=== PATIENT | female | born 1945 | race Caucasian/White ===

== ENCOUNTER → 2016-10-26 | Outpatient (CLI) | payer MEDICARE, OTHER ==
--- NOTE | 2016-11-01 20:02 | WOMENS IMAGING REPORT ---
EXAM DESCRIPTION: 3D SCREENING MAMMO BILAT COMPLETED DATE/TIME: 10/26/2016 9:36 am REASON FOR STUDY: ROUTINE SCREENING; Z12.31 Z12.31 ENCNTR SCREEN MAMMOGRAM FOR MALIGNANT NEOPLASM O F MAYURI COMPARISON: 2015 TECHNIQUE: Standard craniocaudal and mediolateral oblique views of each breast recorded using digita l acquisition and breast tomosynthesis. LIMITATIONS: None. FINDINGS: No masses, calcifications or architectural distortion. No areas of suspicion. Read with the assistance of CAD. .[facility] - R2 Cenova Version 1.3 .[facility] Imaging - R2 Cenova Version 1.3 .[facility] - R2 Cenova Version 2.4 .[facility] - R2 Cenova Version 2.4 .[facility], [facility]1983 - R2 Design/Animation Instructor Version 9.2 IMPRESSION: NORMAL MAMMOGRAM. BIRADS 1. BREAST DENSITY: b. There are scattered areas of fibroglandular density. BIRAD: 1 NEGATIVE RECOMMENDATION: ROUTINE SCREENING Please continue yearly bilateral screening tomosynthesis in October 2017 COMMENT: The patient has been notified of the results by letter per SA requirements. Additional no tification policies are in place for contacting patient with suspicious or incomplete findings. Quality ID #[id number]: The [employer] recommends an annual screening mammogram for women aged 40 years or over. This facility utilizes a reminder system to ensure that all patients receive reminder letters, and/or direct phone calls for appointments. This includes reminders for routine scr eening mammograms, diagnostic mammograms, or other Breast Imaging Interventions when appropriate. Th is patient will be placed in the appropriate reminder system. The [place] [employer] (ACR) has developed recommendations for screening MRI of the breast s in certain patient populations, to be used in conjunction with mammography. Breast MRI surveillanc e may be appropriate for women with more than 20% lifetime risk of developing breast cancer as deter mined by genetic testing, significant family history of the disease, or history of mantle radiation f or Hodgkins Disease. ACR Practice Guidelines 2008. DBT Technology DBT is a type of tomographic mammography. With conventional mammography, overlapping breast tissue ma y make lesions difficult to detect, even with good compression. DBT uses an x-ray tube that rotates a round the breast, taking images at different angles. These images are then combined to create thin sl ices of the breast that the radiologist can view as a 3D reconstruction. The [employer] unit can perform full-field digital mammograms (2D imaging); or DBT (3D imaging); or both, in a combination mode that quickly performs both the mammogram and the tomosynthesis scan while the breast is still compressed. PQRS 6045F: Fluoroscopic imaging is not utilized for breast tomosynthesis. TECHNICAL DOCUMENTATION: FINDING NUMBER: (1) ASSESSMENT: (1) JOB ID: [id number] [employer]- All Rights Reserved
== END ==
LOC: WI 10:08
PROVIDERS: ATTEND Nurse Practitioner Family
DX: Z12.31 Encounter for screening mammogram for malignant neoplasm of breast (principal)
CPT/HCPCS: 77063; G0202; 77067

== ENCOUNTER → 2016-11-27 | Outpatient (CLI) | payer MEDICARE, OTHER ==
[2016-11-27 15:21] LABS: ANION GAP 12 (5-19); BLOOD UREA NITROGEN 23 mg/dL (7-20); CALCIUM 9.5 mg/dL (8.4-10.2); CARBON DIOXIDE 26 mmol/L (22-30); CHLORIDE 95 mmol/L (98-107); CREATININE RESULT 1.49 mg/dL (0.52-1.25); GLUCOSE 98 mg/dL (75-110); POTASSIUM 4.2 mmol/L (3.6-5.0); SODIUM 133.3 mmol/L (137-145)
== END ==
LOC: OD 14:20
PROVIDERS: ATTEND Internal Medicine Nephrology
DX: I10 Essential (primary) hypertension (principal)
CPT/HCPCS: 36415; 80048

== ENCOUNTER → 2016-12-14 | Day surgery (SDC) | payer MEDICARE, OTHER ==
[~2016-12-14] MED LIST: BUPIVACAINE HCL 0.5 % INJ/PF 30 ML SDV ONE; NALOXONE HCL INJ/PF 0.4 MG/1 ML SDV ONE
--- NOTE | 2016-12-14 08:09 | Operative Report ---
KNEE RADIOFREQUENCY LEFT KNEE UNDER ULTRASOUND GUIDANCE PROCEDURE: 1. Superolateral genicular branch from the vastus lateralis 2. Superomedial genicular branch from the vastus medialis 3. Inferomedial genicular branch from the saphenous nerve 4. Medial retinacular branch from the vastus intermedius DATE OF PROCEDURE: December 14, 2016 ANESTHESIA: Local COMPLICATIONS: None PROCEDURE IN DETAIL: Hx/PE/meds/allergies/applicable labs reviewed. No changes and no contraindications were found. Full description of the procedure was provided including benefits as well as possible complications including transient increased pain, stomach irritation, mood alteration, transient weakness or parasthesias as well as more serious nerve injury, bleeding, infection or allergic reaction. Informed consent was obtained and documented. The patient was brought to the procedure room and placed on the exam table in a comfortable supine position. The place for needle placement was obtained by manual palpation with ultrasound confirmation. The sterile field was prepared by chloroprep and sterile drapes. Local anesthesia superficial and deep was provided by local infiltration of 1% lidocaine 2 cc. A 17g 75/100/150mm radiofrequency introducer needle with a 4 mm active tip was placed overlying the left knee joint and using ultrasound guidance the needle was advanced to a bony endpoint on the superiolateral portion of the femoral condyle of the left knee. A second needle was advanced to a bony endpoint on the superiomedial portion of the femoral condyle. A third needle was then placed over the inferiomedial portion of the tibial condyle until a bony endpoint was met and a fourth needle placed midline of the femur approximately 2cm superior to the upper border of the patella. Attempted aspiration yielded no blood. Lateral ultrasound views showed all the needles at 50% depth of the femur and tibia. Motor stimulation was tested at 2.0 volts with no leg movement. Images were saved in AP and lateral. A mixture consisting of 1% Marcaine was slowly injected. Then a radiofrequency ablation of each of the geniculate nerves were done at 80 degrees Celsius for 2 minutes and 30 seconds each. The needles were withdrawn. The patient tolerated the procedure well. After observation the patient was discharged with instructions and follow up. They were also provided contact information to call regarding any concerning symptoms or questions. IMPRESSION: 1. Successful geniculate knee radiofrequency ablation was performed. 2. The patient was given prescription of continue home prescriptions. 3. RTC in 1 week(s).
== END ==
LOC: RAD 07:29
PROVIDERS: ATTEND Family Medicine
DX: M17.11 Unilateral primary osteoarthritis, right knee (principal); M17.12 Unilateral primary osteoarthritis, left knee
CPT/HCPCS: 64640; J2310

== ENCOUNTER → 2017-01-18 | Outpatient (CLI) | payer MEDICARE, OTHER ==
[2017-01-18 15:37] LABS: ABSOLUTE LYMPHOCYTES (AUTO) 1.8 10^3/uL (0.5-4.7); ABSOLUTE MONOCYTES (AUTO) 0.9 10^3/uL (0.1-1.4); ABSOLUTE NEUT (AUTO) 8.1 10^3/uL (1.7-8.2); BASOPHILS % (AUTO) 0.3 % (0-2); HEMATOCRIT 35.5 % (36.0-47.0); HEMOGLOBIN 12.1 g/dL (12.0-15.5); HGB HCT DIFFERENCE 0.8; LYMPHOCYTES % (AUTO) 16.3 % (13-45); MEAN CORPUSCULAR HEMOGLOBIN 31.6 pg (27.0-33.4); MEAN CORPUSCULAR HGB CONC 34.1 g/dL (32.0-36.0); MEAN CORPUSCULAR VOLUME 93 fl (80-97); MONOCYTES % (AUTO) 8.7 % (3-13); RED BLOOD COUNT 3.83 10^6/uL (3.72-5.28); RED CELL DISTRIBUTION WIDTH 14.6 % (11.5-14.0); SEGMENTED NEUTROPHILS % (AUTO) 74.7 % (42-78); WHITE BLOOD COUNT 10.9 10^3/uL (4.0-10.5)
[2017-01-18 16:00] LABS: BLOOD UREA NITROGEN 19 mg/dL (7-20); CALCIUM 9.8 mg/dL (8.4-10.2); CREATININE RESULT 2.01 mg/dL (0.52-1.25); GLUCOSE 85 mg/dL (75-110)
[2017-01-18 16:11] LABS: CARBON DIOXIDE 20 mmol/L (22-30); CHLORIDE 99 mmol/L (98-107); POTASSIUM 4.2 mmol/L (3.6-5.0); SODIUM 141.9 mmol/L (137-145)
[2017-01-18 16:17] LABS: ANION GAP 23 (5-19)
--- NOTE | 2017-01-18 16:45 | RADIOLOGY REPORT (SQ) ---
EXAM DESCRIPTION: CHEST PA/LATERAL COMPLETED DATE/TIME: 01/18/2017 3:31 pm REASON FOR STUDY: PRE OP COMPARISON: 12/31/2015 NUMBER OF VIEWS: Two view. TECHNIQUE: Frontal and lateral radiographic views of the chest acquired. LIMITATIONS: None. FINDINGS: LUNGS AND PLEURA: No opacities, masses or pneumothorax. Minimal obscuring the right cost ophrenic angle on the lateral projection that could represent a small effusion. Stable bleb or new m atter serial right base. MEDIASTINUM AND HILAR STRUCTURES: No masses or contour abnormalities. HEART AND VASCULATURE: Heart normal size. No evidence for failure. BONY STRUCTURES: No acute findings. HARDWARE: None. OTHER: No other significant finding. IMPRESSION: Possible very small right pleural effusion. TECHNICAL DOCUMENTATION: JOB ID: [id number] [employer]- All Rights Reserved
== END ==
LOC: OD 14:50
PROVIDERS: ATTEND Orthopaedic Surgery
DX: Z01.810 Encounter for preprocedural cardiovascular examination (principal); Z01.812 Encounter for preprocedural laboratory examination; Z01.818 Encounter for other preprocedural examination; E11.9 Type 2 diabetes mellitus without complications
CPT/HCPCS: 36415; 71020; 80048; 83036; 85025

== ENCOUNTER → 2017-01-22 | Outpatient (CLI) | payer MEDICARE, OTHER ==
[2017-01-22 15:19] LABS: APPEARANCE,URINE CLEAR; BILIRUBIN,URINE NEGATIVE (NEGATIVE); GLUCOSE, URINE NEGATIVE (NEGATIVE); KETONES,URINE NEGATIVE (NEGATIVE); LEUKOCYTE ESTERASE,URINE SMALL (NEGATIVE); NITRITE,URINE NEGATIVE (NEGATIVE); PROTEIN,URINE NEGATIVE (NEGATIVE); UROBILINOGEN,URINE NEGATIVE mg/dL (<2.0)
--- NOTE | 2017-01-23 09:45 | EKG REPORT ---
SEVERITY:- ABNORMAL ECG - PROBABLE SINUS RHYTHM, REC EKG SECONDARY TO BASELINE ARTIFACTS LEFT BUNDLE BRANCH BLOCK : Confirmed by: Marylu Herron 23-Jan-2017 09:45:24
== END ==
LOC: OD 13:46
PROVIDERS: ATTEND Orthopaedic Surgery
DX: Z01.818 Encounter for other preprocedural examination (principal); S62.300A Unspecified fracture of second metacarpal bone, right hand, initial encounter for closed fracture; S60.221A Contusion of right hand, initial encounter; X58.XXXA Exposure to other specified factors, initial encounter
CPT/HCPCS: 81001; 93005; 93010

== ENCOUNTER 2017-01-29 09:21 | Emergency (ER) | payer MEDICARE, OTHER ==
--- NOTE | 2017-01-29 10:07 | ER Document Report ---
ED Medical Screen (RME) - General Chief Complaint: Breathing Difficulty Stated Complaint: BLOOD PRESSURE CONCERN Time Seen by Provider: 01/29/17 09:56 Notes: Sent from pain management with low blood pressure. Patient's blood pressure in triage here was normal. Patient complains of feeling short of breath. Patient has no previous history of DVT or PE. Patient states she is having a hard time getting comfortable because of left knee pain that is chronic. TRAVEL OUTSIDE OF THE [place] IN LAST 30 DAYS: No - Related Data Allergies/Adverse Reactions: No Known Allergies Allergy (Verified 01/29/17 09:27) Home Medications: Current Home Medications Clonidine HCl 1 tab PO DAILY 01/29/17 [History] Past Medical History - Social History Frequency of alcohol use: None Drug Abuse: None - Past Medical History Cardiac Medical History: Reports: Hx Hypertension Denies: Hx Atrial Fibrillation, Hx Congestive Heart Failure, Hx Coronary Artery Disease, Hx Heart Attack, Hx Hypercholesterolemia, Hx Peripheral Vascular Disease, Hx Pulmonary Embolism, Hx Heart Murmur Pulmonary Medical History: Reports: Hx Asthma - SOB on exertion , Hx Bronchitis - 10 yrs ago , Hx Pneumonia - 10 yrs ago Denies: Hx COPD, Hx Respiratory Failure, Hx Sleep Apnea, Hx Tuberculosis Neurological Medical History: Endocrine Medical History: Reports: Hx Diabetes Mellitus Type 2. Denies: Hx Graves' Disease, Hx Hyperthyroidism, Hx Hypothyroidism Renal/ Medical History: Reports: Hx Renal Insufficiency. Denies: Hx End Stage Renal Disease, Hx Kidney Stones, Hx Peritoneal Dialysis Malignancy Medical History: Denies: Hx Lung Cancer GI Medical History: Reports: Hx Gastroesophageal Reflux Disease. Denies: Hx Crohn's Disease, Hx Hiatal Hernia, Hx Irritable Bowel, Hx Liver Failure, Hx Pancreatitis, Hx Ulcer Musculoskeltal Medical History: Reports Hx Arthritis, Reports Hx Fibromyalgia, Denies Hx Muscular Dystrophy Psychiatric Medical History: Reports: Hx Depression Denies: Hx Bipolar Disorder, Hx Post Traumatic Stress Disorder, Hx Schizophrenia Traumatic Medical History: Denies: Hx Fractures Past Surgical History: Reports: Hx Appendectomy, Hx Cholecystectomy, Hx Orthopedic Surgery. Denies: Hx Bowel Surgery, Hx Section, Hx Colostomy , Hx Coronary Artery Bypass Graft, Hx Gastric Bypass Surgery, Hx Herniorrhaphy, Hx Hysterectomy, Hx Mastectomy, Hx Pacemaker, Hx Tonsillectomy, Hx Tubal Ligation - Immunizations Hx Diphtheria, Pertussis, Tetanus Vaccination: Yes History of Influenza Vaccine for 12/2016 - 05/2017 Season: No Physical Exam - Vital signs Vitals: Temp Pulse Resp BP Pulse Ox 97.8 F 82 20 118/99 H 97 01/29/17 09:27 01/29/17 09:27 01/29/17 09:27 01/29/17 09:27 01/29/17 09:27 Course - Vital Signs Vital signs: Temp Pulse Resp BP Pulse Ox 97.8 F 82 20 118/99 H 97 01/29/17 09:27 01/29/17 09:27 01/29/17 09:27 01/29/17 09:27 01/29/17 09:27
--- NOTE | 2017-01-29 10:33 | ER Document Report ---
ED General - General Chief Complaint: Breathing Difficulty Stated Complaint: BLOOD PRESSURE CONCERN Time Seen by Provider: 01/29/17 09:56 Notes: The patient is a 72-year-old female, past medical history chronic pain, presents from her pain management office, Dr. Alexandra's office, for concerns about low blood pressure. Her BP in the office was 61/40. On arrival to the ER , her blood pressure is normal. Patient says she took her amlodipine, Coreg and clonidine just prior to her appointment. She took the Coreg last night about 10 hours prior to her next dose and is unsure if the meds were taken too close together. She is complaining of some shortness of breath and her chronic left knee pain. Patient says that due to her chronic knee pain, she sits in a chair for 24 hours a day. She is only having shortness of breath when she ambulates and is unsure if this is due to deconditioning. She had shingles on her right arm last month, but her rash is no longer painful. She denies chest pain, nausea, vomiting, fevers, back pain, urinary symptoms, headache, cough or back pain. TRAVEL OUTSIDE OF THE [place] IN LAST 30 DAYS: No - Related Data Allergies/Adverse Reactions: No Known Allergies Allergy (Verified 01/29/17 09:27) Home Medications: Current Home Medications Clonidine HCl 1 tab PO DAILY 01/29/17 [History] Past Medical History - General Information source: Patient - Social History Smoking Status: Former Smoker Frequency of alcohol use: None Drug Abuse: None Family History: CAD Patient has suicidal ideation: No Patient has homicidal ideation: No - Past Medical History Cardiac Medical History: Reports: Hx Hypertension Denies: Hx Atrial Fibrillation, Hx Congestive Heart Failure, Hx Coronary Artery Disease, Hx Heart Attack, Hx Hypercholesterolemia, Hx Peripheral Vascular Disease, Hx Pulmonary Embolism, Hx Heart Murmur Pulmonary Medical History: Reports: Hx Asthma - SOB on exertion , Hx Bronchitis - 10 yrs ago , Hx Pneumonia - 10 yrs ago Denies: Hx COPD, Hx Respiratory Failure, Hx Sleep Apnea, Hx Tuberculosis Neurological Medical History: Endocrine Medical History: Reports: Hx Diabetes Mellitus Type 2. Denies: Hx Graves' Disease, Hx Hyperthyroidism, Hx Hypothyroidism Renal/ Medical History: Reports: Hx Renal Insufficiency. Denies: Hx End Stage Renal Disease, Hx Kidney Stones, Hx Peritoneal Dialysis Malignancy Medical History: Denies: Hx Lung Cancer GI Medical History: Reports: Hx Gastroesophageal Reflux Disease. Denies: Hx Crohn's Disease, Hx Hiatal Hernia, Hx Irritable Bowel, Hx Liver Failure, Hx Pancreatitis, Hx Ulcer Musculoskeltal Medical History: Reports Hx Arthritis, Reports Hx Fibromyalgia, Denies Hx Muscular Dystrophy Psychiatric Medical History: Reports: Hx Depression Denies: Hx Bipolar Disorder, Hx Post Traumatic Stress Disorder, Hx Schizophrenia Traumatic Medical History: Denies: Hx Fractures Past Surgical History: Reports: Hx Appendectomy, Hx Cholecystectomy, Hx Orthopedic Surgery. Denies: Hx Bowel Surgery, Hx Section, Hx Colostomy , Hx Coronary Artery Bypass Graft, Hx Gastric Bypass Surgery, Hx Herniorrhaphy, Hx Hysterectomy, Hx Mastectomy, Hx Pacemaker, Hx Tonsillectomy, Hx Tubal Ligation - Immunizations Hx Diphtheria, Pertussis, Tetanus Vaccination: Yes Hx Pneumococcal Vaccination: 12/23/15 Review of Systems - Review of Systems Notes: REVIEW OF SYSTEMS: CONSTITUTIONAL: -fevers, -chills EENT: -eye pain, -difficulty swallowing, -nasal congestion CARDIOVASCULAR:-chest pain, -syncope. RESPIRATORY: -cough, +SOB GASTROINTESTINAL: -abdominal pain, -nausea, -vomiting, -diarrhea GENITOURINARY: -dysuria, -hematuria MUSCULOSKELETAL: +chronic left knee pain, -back pain, -neck pain SKIN: -rash or skin lesions. HEMATOLOGIC: -easy bruising or bleeding. LYMPHATIC: -swollen, enlarged glands. NEUROLOGICAL: -altered mental status or loss of consciousness, -headache, - neurologic symptoms PSYCHIATRIC: -anxiety, -depression. ALL OTHER SYSTEMS REVIEWED AND NEGATIVE. Physical Exam - Vital signs Vitals: Temp Pulse Resp BP Pulse Ox 97.8 F 82 20 118/99 H 97 01/29/17 09:27 01/29/17 09:27 01/29/17 09:27 01/29/17 09:27 01/29/17 09:27 - Notes Notes: PHYSICAL EXAMINATION: GENERAL: Well-appearing, well-nourished and in no acute distress. HEAD: Atraumatic, normocephalic. EYES: Pupils equal round and reactive to light, extraocular movements intact, sclera anicteric, conjunctiva are normal. ENT: nares patent, oropharynx clear without exudates. Moist mucous membranes. NECK: Normal range of motion, supple without lymphadenopathy LUNGS: Breath sounds clear to auscultation bilaterally and equal. No wheezes rales or rhonchi. HEART: Regular rate and rhythm without murmurs ABDOMEN: Soft, nontender, normoactive bowel sounds. No guarding, no rebound. No masses appreciated. EXTREMITIES: Normal range of motion, no pitting or edema. No cyanosis. NEUROLOGICAL: Cranial nerves grossly intact. Normal speech, normal gait. Normal sensory and motor exams. PSYCH: Normal mood, normal affect. SKIN: Warm, Dry, normal turgor, no rashes or lesions noted. Course - Re-evaluation Re-evalutation: Patient appears very well and is in no respiratory distress. D-dimer sent, which was elevated, but V/Q scan does not show any evidence of pulmonary embolism. Creatinine is slightly elevated, but she has had higher values in the past. Rest of labs are unremarkable and chest x-ray does not show any evidence of pneumonia. Her initial hypotension improved on arrival to the ER and instructed her to hold her blood pressure medications until her appointment next week with her primary care physician. Given strict return precautions and she understands. - Vital Signs Vital signs: Temp Pulse Resp BP Pulse Ox 97.8 F 82 15 106/62 98 01/29/17 09:27 01/29/17 09:27 01/29/17 14:11 01/29/17 14:11 01/29/17 14:11 - Laboratory Result Diagrams: 01/29/17 10:22 01/29/17 10:22 Laboratory results interpreted by me: 01/29/17 01/29/17 01/29/17 10:22 10:22 10:22 RBC 3.55 L Hgb 11.3 L Hct 33.3 L RDW 14.8 H D-Dimer 1.45 H Creatinine 2.22 H Est GFR ( Amer) 26 L Est GFR (Non-Af Amer) 22 L Glucose 132 H AST 13 L - Diagnostic Test Radiology reviewed: Image reviewed, Reports reviewed Radiology results interpreted by me: CXR: NAD V/Q Chest: No PE. - EKG Interpretation by Me EKG shows normal: Sinus rhythm, [place], Intervals, QRS Complexes, ST-T Waves Rate: Normal Discharge - Discharge Clinical Impression: Hypotension Qualifiers: Hypotension type: unspecified hypotension type Qualified Code(s): I95.9 - Hypotension, unspecified Dyspnea Qualifiers: Dyspnea type: unspecified Qualified Code(s): R06.00 - Dyspnea, unspecified Condition: Good Disposition: HOME, SELF-CARE Additional Instructions: Do not take your blood pressure medications as this may be causing your blood pressure to drop too low. Keep a log of your blood pressures and bring it to your primary care physician to see what medications need to be adjusted. SHORTNESS OF BREATH OR DYSPNEA: You were evaluated for shortness of breath, or dyspnea. Dyspnea has many causes, and some are more serious than others. Sometimes it's impossible to diagnose the cause of dyspnea with the tests that are available on an emergency basis. Based on our evaluation today, you do not need hospitalization now. We found no evidence of pneumonia, collapsed lung, blood clots in the lung, tumors , or heart failure. Causes of non-specific dyspnea can include asthma or bronchospasm, hyperventilation, emotional distress, heart disease, emphysema, fibrosis of the lung, and stiffness of the chest wall. In healthy individuals with a single episode, it's sometimes reasonable to do nothing but wait to see if the problem occurs again. Additional tests used to evaluate dyspnea can include cardiac stress testing, echocardiography, pulmonary function testing, CAT scan of the chest, bronchoscopy or pulmonary biopsy. Return if shortness of breath persists or worsens, or if you develop chest pain, fever, cough, confusion, or fainting. NORMAL EXAM AND WORKUP: At this time, your examination and workup show no significant abnormality. No significant abnormal physical findings were noted. All laboratory, EKG, and imaging (x-ray, CT scans, ultrasound) studies that were ordered show no significant abnormality. Although your examination and all studies that were ordered showed no significant abnormal finding, there are no examinations and no studies that are 100% accurate. There is always the possibility that some abnormality could exist and not be detected with physical examination or within the limits and capabilities of laboratory and other studies. You should return or follow up as you were instructed on your visit today for further evaluation if your symptoms do not resolve. FOLLOW-UP CARE: If you have been referred to a physician for follow-up care, call the physician s office for an appointment as you were instructed or within the next two days. If you experience worsening or a significant change in your symptoms, notify the physician immediately or return to the Emergency Department at any time for re-evaluation. Referrals: LINDA HOFF FNP-C [Primary Care Provider] - Follow up as needed
[2017-01-29 10:36] LABS: ABSOLUTE BASOPHILS # (AUTO) 0.1 10^3/uL (0.0-0.2); ABSOLUTE EOSINOPHILS # (AUTO) 0.3 10^3/uL (0.0-0.6); ABSOLUTE LYMPHOCYTES (AUTO) 1.9 10^3/uL (0.5-4.7); ABSOLUTE NEUT (AUTO) 6.9 10^3/uL (1.7-8.2); BASOPHILS % (AUTO) 1.4 % (0-2); HEMATOCRIT 33.3 % (36.0-47.0); HEMOGLOBIN 11.3 g/dL (12.0-15.5); HGB HCT DIFFERENCE 0.6; LYMPHOCYTES % (AUTO) 18.6 % (13-45); MEAN CORPUSCULAR HEMOGLOBIN 31.9 pg (27.0-33.4); MEAN CORPUSCULAR VOLUME 94 fl (80-97); MONOCYTES % (AUTO) 9.6 % (3-13); RED BLOOD COUNT 3.55 10^6/uL (3.72-5.28); RED CELL DISTRIBUTION WIDTH 14.8 % (11.5-14.0); SEGMENTED NEUTROPHILS % (AUTO) 67.4 % (42-78); WHITE BLOOD COUNT 10.3 10^3/uL (4.0-10.5)
--- NOTE | 2017-01-29 10:46 | RADIOLOGY REPORT (SQ) ---
EXAM DESCRIPTION: CHEST SINGLE VIEW COMPLETED DATE/TIME: 01/29/2017 10:38 am REASON FOR STUDY: pain/sob COMPARISON: 12/31/2015 EXAM PARAMETERS: NUMBER OF VIEWS: One view. TECHNIQUE: Single frontal radiographic view of the chest acquired. RADIATION DOSE: NA LIMITATIONS: None. FINDINGS: LUNGS AND PLEURA: There appears to be a pneumatocele in the right base. There is no infil trate or effusion. MEDIASTINUM AND HILAR STRUCTURES: No masses. Contour normal. HEART AND VASCULAR STRUCTURES: Heart normal in size. Normal vasculature. BONES: No acute findings. HARDWARE: None in the chest. OTHER: No other significant finding. IMPRESSION: No acute cardiopulmonary disease. TECHNICAL DOCUMENTATION: JOB ID: [id number] [employer]- All Rights Reserved
[2017-01-29] MEDS ORDERED: NORMAL SALINE 1000 ML 1,000 ML IV ONE (10:48)
[2017-01-29 11:05] LABS: ALANINE AMINOTRANSFERASE 26 U/L (9-52); ALBUMIN 3.6 g/dL (3.5-5.0); ALKALINE PHOSPHATASE 76 U/L (38-126); ANION GAP 17 (5-19); ASPARTATE AMINO TRANSFERASE 13 U/L (14-36); BILIRUBIN,DIRECT 0.4 mg/dL (0.0-0.4); BILIRUBIN,TOTAL 0.5 mg/dL (0.2-1.3); BLOOD UREA NITROGEN 18 mg/dL (7-20); CALCIUM 9.6 mg/dL (8.4-10.2); CARBON DIOXIDE 23 mmol/L (22-30); CHLORIDE 101 mmol/L (98-107); CREATININE RESULT 2.22 mg/dL (0.52-1.25); GLUCOSE 132 mg/dL (75-110); POTASSIUM 3.9 mmol/L (3.6-5.0); SODIUM 140.5 mmol/L (137-145); TOTAL PROTEIN 6.6 g/dL (6.3-8.2)
--- NOTE | 2017-01-29 14:03 | EKG REPORT ---
SEVERITY:- ABNORMAL ECG - INCOMPLETE ANALYSIS DUE TO MISSING DATA IN PRECORDIAL LEAD(S) PROBABLE SINUS RHYTHM cannot rule out ACCELERATED JUNCTIONAL RHYTHM BORDERLINE T ABNORMALITIES, ANT-LAT LEADS : Confirmed by: Marylu Herron 29-Jan-2017 14:02:28
[2017-01-29 14:13] VITALS: BP 106/62
--- NOTE | 2017-01-29 14:31 | RADIOLOGY REPORT (SQ) ---
EXAM DESCRIPTION: NM LUNG VENT/PERF SCAN COMPLETED DATE/TIME: 01/29/2017 2:12 pm REASON FOR STUDY: SOB, elevated d-dimer, elevated creatinine COMPARISON: None. RADIONUCLIDE AND DOSE: 5 millicuries TC-99m MAA Intravenous 30 millicuries TC-99m DTPA Inhaled aerosol TECHNIQUE: Eight views of the lungs acquired post ventilation of DTPA aerosol. Eight matching views of the lungs acquired following injection of MAA. LIMITATIONS: None. FINDINGS: VENTILATION: Symmetric and homogeneous distribution of DTPA aerosol during ventilatory pha se. No significant areas of photopenia. PERFUSION: Perfusion images with normal homogenous activity and no wedge-shaped or segmental defects. No ventilation-perfusion mismatches. OTHER: No other significant finding. IMPRESSION: NORMAL VENTILATION-PERFUSION LUNG SCAN. NEGATIVE FOR PULMONARY EMBOLI. TECHNICAL DOCUMENTATION: JOB ID: [id number] [employer]- All Rights Reserved
--- NOTE | 2017-01-30 10:44 | EKG REPORT ---
SEVERITY:- NORMAL ECG - SINUS RHYTHM : Confirmed on behalf of: Marylu Herron 30-Jan-2017 10:43:38
== END 2017-01-29 15:07 | disposition home or self-care (01) ==
LOC: ER 09:21
DX: I95.9 Hypotension, unspecified (principal); R06.00 Dyspnea, unspecified; I10 Essential (primary) hypertension; E11.9 Type 2 diabetes mellitus without complications; G89.29 Other chronic pain; M25.562 Pain in left knee; Z90.49 Acquired absence of other specified parts of digestive tract; Z87.891 Personal history of nicotine dependence
CPT/HCPCS: 93005 ×2; 99285; 96360; 36415; 85025; 80053; 85379; 71010; 78582; 93010 ×2; A9540; A9567; J7030; Q9969

== ENCOUNTER 2017-02-05 06:30 | Inpatient (IN) | payer MEDICARE, OTHER ==
[~2017-02-05 06:30] MED LIST changes: -BUPIVACAINE HCL 0.5 % INJ/PF 30 ML SDV ONE; +BUPIVACAINE INJ/PF LIPOSOME/PF 266 MG/20 ML SDV IJ PRN; +CEFAZOLIN INJ 1 GM VIAL IV PRN; +IBUPROFEN 800 MG/NS 250 ML IV PRN; +LACTATED RINGERS 1000 ML IV PRN; +LANSOPRAZOLE 15 MG TAB.RAP.DR PO PRN; +LIDOCAINE 0.5% INJ-PF (5 MG/ML) 50 ML SDV SUBCUT PRN; -NALOXONE HCL INJ/PF 0.4 MG/1 ML SDV ONE; +OXYCODONE HCL SR 10 MG TABLET PO PRN; +THROMBIN (BOVINE) 5000 UNIT EPITAXIS KIT ONE; +THROMBIN (BOVINE) TOPICAL 20000 UNIT VIAL ONE; +VANCOMYCIN HCL 1,000 MG in DEXTROSE 5%-WATER 250 ML IV PRN
[2017-02-05] MEDS ORDERED: FENTANYL CITRATE INJ/PF 100 MCG/2 ML AMPUL ONE (07:55)
[2017-02-05] MEDS ORDERED: MIDAZOLAM 2 MG/2 ML INJ ONE (07:55)
[2017-02-05] MEDS ORDERED: DEXAMETHASONE SOD PHOSPHATE INJ 4 MG/1 ML VIAL ONE (07:55)
[2017-02-05] MEDS ORDERED: TRANEXAMIC ACID INJ/PF 1,000 MG/10 ML SDV IV ONE ×2 (07:56→12:00)
[2017-02-05] MEDS ORDERED: ONDANSETRON HCL INJ/PF 4 MG/2 ML SDV ONE (07:56)
[2017-02-05] MEDS ORDERED: PROPOFOL INJ 200 MG/20 ML VIAL IV ONE (07:56)
[2017-02-05] MEDS ORDERED: MORPHINE SULFATE 10 MG/ML INJ ONE (07:56)
[2017-02-05] MEDS ORDERED: BUPIVACAINE INJ/PF LIPOSOME/PF 266 MG/20 ML SDV ONE (08:18)
[2017-02-05] MEDS ORDERED: FENTANYL CITRATE INJ/PF 100 MCG/2 ML AMPUL IV PRN ×3 (09:14)
[2017-02-05] MEDS ORDERED: PROMETHAZINE HCL INJ 25 MG/1 ML VIAL IV PRN ×2 (09:14)
[2017-02-05] MEDS ORDERED: MORPHINE SULFATE 10 MG/ML INJ IV PRN ×3 (09:14→09:48)
[2017-02-05] MEDS ORDERED: MEPERIDINE HCL/PF INJ 25 MG/1 ML DISP.SYRIN IV PRN (09:14)
[2017-02-05] MEDS ORDERED: DIPHENHYDRAMINE HCL 50 MG/ML VIAL IV PRN ×2 (09:14→09:48)
--- NOTE | 2017-02-05 09:35 | Operative Report ---
Operative Report DATE OF SURGERY: 02/05/17 PREOPERATIVE DIAGNOSIS: Left knee arthritis OPERATION: Left knee arthroplasty SURGEON: SALINA CARRILLO 1ST TIRE AND LUBE TECHNICIAN: HUY PATTON ANESTHESIA: Spinal TISSUE REMOVED OR ALTERED: Bone to pathology ESTIMATED BLOOD LOSS: 100 PROCEDURE: Implants used: Femur: Med triathlon #5 CR femur Tibia: 4 tibia Tibial liner: 9 mm CS insert Patella: 35 mm oval patella Procedure with the patient supine on the operating table the left the limb is prepped and draped in a sterile fashion. The limb was elevated for exsanguination and the tourniquet inflated to 280 torr. A standard midline median parapatellar approach the knee is taken. Access is gained to the femoral canal through the intercondylar notch. Intramedullary alignment instrumentation used to resect 10 mm of distal femur in 5 of valgus. Sizing guide indicated a size 5 femur. Appropriate cutting jig is then used to fashion anterior posterior and chamfer cuts. A trial reduction femurs performed and this is judged to be adequate. Attention was next turned to the tibia. Using an extra medullary alignment system 9 millimeters was resected off the lateral tibial plateau. This is sized to a size 4 tibia. A trial reduction was now performed with a 5 femur and a 4 tibia using a 9 millimeters spacer. It is full extension and central patellofemoral tracking. The articular surface the patella was next resected using an oscillating saw. All trial implants were removed. Polymethylmethacrylate is mixed and used to cement the above implants in place. On adequate curing the cement excess cement was removed the tourniquet was deflated hemostasis obtained the wound is then closed in layers using interrupted Vicryl followed by criss. A sterile compressive dressing was applied and the patient returned to recovery room in satisfactory condition.
[2017-02-05] MEDS ORDERED: MORPHINE SULFATE 10 MG/ML INJ IM PRN (09:48)
[2017-02-05] MEDS ORDERED: ZOLPIDEM TARTRATE 5 MG TABLET PO PRN (09:48)
[2017-02-05] MEDS ORDERED: ACETAMINOPHEN 325 MG TABLET PO PRN (09:48)
[2017-02-05] MEDS ORDERED: ONDANSETRON HCL INJ/PF 4 MG/2 ML SDV IV PRN (09:48)
[2017-02-05] MEDS ORDERED: ONDANSETRON 4 MG TAB.RAPDIS PO PRN (09:48)
[2017-02-05] MEDS ORDERED: MAG HYDROX/AL HYDROX/SIMETH SUSP 30 ML UDCUP PO PRN (09:48)
[2017-02-05] MEDS ORDERED: (PENDING PHARMACY ID) (Lisinopril/Hydrochlorothiazide [Lisinopril-Hctz 20-25 Mg Tab] 1 TAB PO SCH (10:00)
--- NOTE | 2017-02-05 10:57 | RADIOLOGY REPORT (SQ) ---
EXAM DESCRIPTION: KNEE LEFT 2 VIEWS COMPLETED DATE/TIME: 02/05/2017 10:34 am REASON FOR STUDY: Post OP -Long Cassette in PACU M17.12 UNILATERAL PRIMARY OSTEOARTHRITIS, LEFT KNE E COMPARISON: None. NUMBER OF VIEWS: Two views. TECHNIQUE: AP and lateral radiographic images acquired of the left knee. LIMITATIONS: None. FINDINGS: MINERALIZATION: Normal. BONES: Postoperative images show a total knee arthroplasty in good position JOINT: No effusion. SOFT TISSUES: No soft tissue swelling. No radio-opaque foreign body. OTHER: No other significant finding. IMPRESSION: Total knee arthroplasty. TECHNICAL DOCUMENTATION: JOB ID: [id number] [employer]- All Rights Reserved
[2017-02-05] MEDS: GABAPENTIN 300 MG CAPSULE PO SCH ×3 (12:28→23:17)
[2017-02-05] MEDS: MORPHINE SULFATE 10 MG/ML INJ IV PRN (12:38)
[2017-02-05] MEDS ORDERED: ACETAMINOPHEN 100 ML IV ONE (15:48)
[2017-02-05] MEDS: IBUPROFEN 800 MG in NORMAL SALINE 250 ML IV SCH (17:17)
[2017-02-05] MEDS: OXYCODONE HCL SR 10 MG TABLET PO SCH (21:38)
[2017-02-05] MEDS ORDERED: VANCOMYCIN HCL 1,000 MG in DEXTROSE 5%-WATER 250 ML IV ONE (22:00)
[2017-02-05] MEDS: OXYCODONE HCL IR 5 MG TABLET PO PRN (23:17)
[2017-02-05] MEDS: CARVEDILOL 12.5 MG TABLET PO SCH (23:43)
[2017-02-06] MEDS: IBUPROFEN 800 MG in NORMAL SALINE 250 ML IV SCH ×3 (02:36→18:47)
[2017-02-06] MEDS: GABAPENTIN 300 MG CAPSULE PO SCH ×4 (05:46→23:21)
[2017-02-06] MEDS: LANSOPRAZOLE 30 MG TAB.RAP.DR PO SCH (05:46)
[2017-02-06] MEDS: OXYCODONE HCL IR 5 MG TABLET PO PRN ×3 (05:47→20:41)
--- NOTE | 2017-02-06 06:50 | PDOC PROGRESS REPORT ---
Subjective Progress Note for:: 02/06/17 Subjective:: 72-year-old white female one day status post total left knee arthroplasty. Patient is sitting upright in hospital bed awake this morning. Patient notes that she was comfortable throughout the night and was able to sleep. She has no complaints otherwise. Reason For Visit: M17.12 UNILATERAL PRIMARY OSTEOARTHRITIS, LEFT KNE Physical Exam Vital Signs: Temp Pulse Resp BP Pulse Ox 36.7 C 89 18 132/53 H 94 02/06/17 04:16 02/06/17 04:16 02/06/17 04:16 02/06/17 04:16 02/06/17 04:16 Intake & Output 02/04/17 02/05/17 02/06/17 06:59 06:59 06:59 Intake Total 5927 Output Total 2100 Balance 3827 Weight 136.08 kg General appearance: PRESENT: no acute distress, well-developed, well-nourished Head exam: PRESENT: atraumatic, normocephalic Respiratory exam: PRESENT: unlabored Pulses: PRESENT: normal dorsalis pedis pul, +2 pedal pulses bilateral Vascular exam: PRESENT: normal capillary refill Additional comments: Patient sitting upright in hospital bed with left lower extremity in full extension with slight flexion contracture of the left knee. On exam patient's postoperative compression dressing is in place and it is clean dry and intact. Her OpSite wound dressing is visible under compression dressing and is saturated with sreedhar blood. The compression dressing was subsequently removed and the OpSite dressing changed. The new dressing was placed and is clean dry and intact. She has brisk capillary refill to toes on bilateral feet, her lower extremities are equal in length and her distal neurovascular exam is intact. Musculoskeletal exam: PRESENT: ambulatory Additional comments: Patient made some progress with physical therapy yesterday ambulating 30 feet independently. She will continue to work with physical therapy to improve strength range of motion and length of ambulation. Her sensory and motor functions are intact and her distal neurovascular exam is intact. Neurological exam: PRESENT: alert, awake, oriented to person, oriented to place , oriented to time, oriented to situation, CN II-XII grossly intact. ABSENT: motor sensory deficit Psychiatric exam: PRESENT: appropriate affect, normal mood. ABSENT: homicidal ideation, suicidal ideation Skin exam: PRESENT: dry, intact, warm. ABSENT: cyanosis, rash Results Laboratory Results: 02/05/17 07:18 02/05/17 02/05/17 07:18 07:18 Potassium 3.8 Glucose 104 Impressions: Knee X-Ray 02/05/17 09:50 IMPRESSION: Total knee arthroplasty. Assessment & Plan - Diagnosis (1) Arthritis of left knee Is this a current diagnosis for this admission?: Yes - Plan Summary Plan Summary: 72-year-old white female one day status post total left knee arthroplasty. Patient's pain is well controlled and she was comfortable overnight. She makes some progress with physical therapy ambulating 30 feet independently. She will continue to work with physical therapy to improve strength range of motion of left lower extremity. Her OpSite dressing was saturated this was changed and is clean dry and intact. Her compression dressing was removed this morning as well. We will plan for discharge later this week.
[2017-02-06 07:23] LABS: HEMATOCRIT 27.1 % (36.0-47.0); HEMOGLOBIN 9.2 g/dL (12.0-15.5); HGB HCT DIFFERENCE 0.5; MEAN CORPUSCULAR HEMOGLOBIN 32.3 pg (27.0-33.4); MEAN CORPUSCULAR HGB CONC 33.9 g/dL (32.0-36.0); MEAN CORPUSCULAR VOLUME 95 fl (80-97); RED BLOOD COUNT 2.84 10^6/uL (3.72-5.28); RED CELL DISTRIBUTION WIDTH 15.5 % (11.5-14.0); WHITE BLOOD COUNT 10.7 10^3/uL (4.0-10.5)
[2017-02-06 07:32] LABS: ANION GAP 15 (5-19); BLOOD UREA NITROGEN 29 mg/dL (7-20); CALCIUM 8.7 mg/dL (8.4-10.2); CARBON DIOXIDE 21 mmol/L (22-30); CHLORIDE 103 mmol/L (98-107); CREATININE RESULT 2.18 mg/dL (0.52-1.25); GLUCOSE 147 mg/dL (75-110); POTASSIUM 4.4 mmol/L (3.6-5.0); SODIUM 138.5 mmol/L (137-145)
[2017-02-06] MEDS: METFORMIN HCL 500 MG TABLET PO SCH (09:41)
[2017-02-06] MEDS: AMITRIPTYLINE HCL 10 MG TABLET PO SCH (09:58)
[2017-02-06] MEDS: ALLOPURINOL 300 MG TABLET PO SCH (09:58)
[2017-02-06] MEDS: ASPIRIN 81 MG TABLET, ENT COATED PO SCH (09:58)
[2017-02-06] MEDS: OXYCODONE HCL SR 10 MG TABLET PO SCH ×2 (09:58→21:19)
[2017-02-06] MEDS ORDERED: LISINOPRIL 10 MG TABLET PO SCH (10:00)
[2017-02-06] MEDS: AMLODIPINE BESYLATE 5 MG TABLET PO SCH (12:43)
[2017-02-06] MEDS: CARVEDILOL 12.5 MG TABLET PO SCH ×2 (12:43→21:19)
[2017-02-06] MEDS: LISINOPRIL 10 MG TABLET PO SCH (12:43)
[2017-02-06] MEDS: HYDROCHLOROTHIAZIDE 25 MG TABLET PO SCH (12:43)
[2017-02-07] MEDS: IBUPROFEN 800 MG in NORMAL SALINE 250 ML IV SCH ×2 (03:41→10:45)
[2017-02-07] MEDS: LANSOPRAZOLE 30 MG TAB.RAP.DR PO SCH (05:19)
[2017-02-07] MEDS: OXYCODONE HCL IR 5 MG TABLET PO PRN ×3 (05:19→18:41)
[2017-02-07] MEDS: GABAPENTIN 300 MG CAPSULE PO SCH ×3 (05:19→18:42)
[2017-02-07 06:29] LABS: HEMATOCRIT 27.1 % (36.0-47.0); HEMOGLOBIN 9.3 g/dL (12.0-15.5); HGB HCT DIFFERENCE 0.8; MEAN CORPUSCULAR HEMOGLOBIN 32.6 pg (27.0-33.4); MEAN CORPUSCULAR HGB CONC 34.2 g/dL (32.0-36.0); MEAN CORPUSCULAR VOLUME 95 fl (80-97); RED BLOOD COUNT 2.84 10^6/uL (3.72-5.28); RED CELL DISTRIBUTION WIDTH 15.7 % (11.5-14.0); WHITE BLOOD COUNT 8.5 10^3/uL (4.0-10.5)
--- NOTE | 2017-02-07 07:18 | PDOC PROGRESS REPORT ---
Subjective Progress Note for:: 02/07/17 Reason For Visit: M17.12 UNILATERAL PRIMARY OSTEOARTHRITIS, LEFT KNE Physical Exam Vital Signs: Temp Pulse Resp BP Pulse Ox 36.5 C 73 18 107/83 100 02/07/17 00:18 02/07/17 00:18 02/07/17 00:18 02/07/17 00:18 02/07/17 00:18 Intake & Output 02/06/17 02/07/17 02/08/17 06:59 06:59 06:59 Intake Total 5927 1570 Output Total 2100 200 Balance 3827 1370 Weight 136.08 kg General appearance: PRESENT: no acute distress Head exam: PRESENT: normocephalic Respiratory exam: PRESENT: unlabored Cardiovascular exam: PRESENT: RRR Pulses: PRESENT: +1 pedal pulses bilateral Vascular exam: PRESENT: normal capillary refill GI/Abdominal exam: PRESENT: soft Rectal exam: PRESENT: deferred Extremities exam: PRESENT: other - Left knee dressing with some drainage. This is changed today. Wound is well approximated without erythema. Neurological exam: PRESENT: alert, awake, oriented to person, oriented to place , oriented to time, oriented to situation. ABSENT: motor sensory deficit Psychiatric exam: PRESENT: appropriate affect, normal mood. ABSENT: homicidal ideation, suicidal ideation Skin exam: PRESENT: dry, intact, warm. ABSENT: cyanosis, rash Results Laboratory Results: 02/07/17 06:00 02/06/17 07:02 02/06/17 02/06/17 02/07/17 07:02 07:02 06:00 WBC 10.7 H 8.5 RBC 2.84 L 2.84 L Hgb 9.2 L 9.3 L Hct 27.1 L 27.1 L MCV 95 95 MCH 32.3 32.6 MCHC 33.9 34.2 RDW 15.5 H 15.7 H Plt Count 238 233 Sodium 138.5 Potassium 4.4 Chloride 103 Carbon Dioxide 21 L Anion Gap 15 BUN 29 H Creatinine 2.18 H Est GFR ( Amer) 27 L Est GFR (Non-Af Amer) 22 L Glucose 147 H Calcium 8.7 Impressions: Knee X-Ray 02/05/17 09:50 IMPRESSION: Total knee arthroplasty. Status: Imported from PACS Assessment & Plan - Diagnosis (1) Arthritis of left knee Is this a current diagnosis for this admission?: Yes Plan: 72-year-old white female postop day 2 from left knee arthroplasty. Patient making progress with physical therapy. Anticipate discharge home tomorrow. - Time Time Spent with patient: 15-24 minutes Anticipated discharge: Home with Homehealth Within: within 24 hours
[2017-02-07] MEDS: CARVEDILOL 12.5 MG TABLET PO SCH ×2 (09:00→21:30)
[2017-02-07] MEDS: LISINOPRIL 10 MG TABLET PO SCH (09:02)
[2017-02-07] MEDS: HYDROCHLOROTHIAZIDE 25 MG TABLET PO SCH (09:03)
[2017-02-07] MEDS: OXYCODONE HCL SR 10 MG TABLET PO SCH (09:03)
[2017-02-07] MEDS: ALLOPURINOL 300 MG TABLET PO SCH (09:04)
[2017-02-07] MEDS: ASPIRIN 81 MG TABLET, ENT COATED PO SCH (09:04)
[2017-02-07] MEDS: METFORMIN HCL 500 MG TABLET PO SCH (09:04)
[2017-02-07] MEDS: AMLODIPINE BESYLATE 5 MG TABLET PO SCH (09:07)
[2017-02-07] MEDS: AMITRIPTYLINE HCL 10 MG TABLET PO SCH (09:08)
[2017-02-07] MEDS ORDERED: NORMAL SALINE 1000 ML 1,000 ML IV PRN (20:51)
[2017-02-07] MEDS ORDERED: NORMAL SALINE 1000 ML 1,000 ML IV ONE (21:00)
[2017-02-08] MEDS ORDERED: NALOXONE HCL INJ/PF 0.4 MG/1 ML SDV ONE (05:04)
[2017-02-08] MEDS ORDERED: NORMAL SALINE 1000 ML 1,000 ML IV ONE ×3 (05:30→16:22)
[2017-02-08 05:48] LABS: HEMATOCRIT 32.5 % (36.0-47.0); HEMOGLOBIN 10.7 g/dL (12.0-15.5); HGB HCT DIFFERENCE -0.4; MEAN CORPUSCULAR HEMOGLOBIN 31.8 pg (27.0-33.4); MEAN CORPUSCULAR VOLUME 96 fl (80-97); RED BLOOD COUNT 3.37 10^6/uL (3.72-5.28); RED CELL DISTRIBUTION WIDTH 16.3 % (11.5-14.0)
[2017-02-08 05:58] LABS: ANION GAP 16 (5-19); BLOOD UREA NITROGEN 41 mg/dL (7-20); CALCIUM 8.4 mg/dL (8.4-10.2); CARBON DIOXIDE 16 mmol/L (22-30); CHLORIDE 106 mmol/L (98-107); CREATININE RESULT 3.61 mg/dL (0.52-1.25); GLUCOSE 105 mg/dL (75-110); MAGNESIUM 1.4 mg/dL (1.6-2.3); POTASSIUM 4.4 mmol/L (3.6-5.0); SODIUM 137.8 mmol/L (137-145)
[2017-02-08] MEDS: LANSOPRAZOLE 30 MG TAB.RAP.DR PO SCH (06:04)
[2017-02-08] MEDS: GABAPENTIN 300 MG CAPSULE PO SCH ×2 (06:04)
[2017-02-08] MEDS ORDERED: NORMAL SALINE 1000 ML 1,000 ML IV PRN ×2 (06:20→07:42)
[2017-02-08 06:26] LABS: WHITE BLOOD COUNT 21.2 10^3/uL (4.0-10.5)
[2017-02-08 06:28] LABS: BAND NEUTROPHILS % (MANUAL) 7 % (3-5); BASOPHILS % (MANUAL) 2 % (0-2); EOSINOPHILS % (MANUAL) 1 % (0-6); LYMPHOCYTES % (MANUAL) 9 % (13-45); TOTAL CELLS COUNTED 100
[2017-02-08 06:31] LABS: ANISOCYTOSIS 2+; OVALOCYTES SLIGHT; TOXIC GRANULATION SLIGHT; TOXIC VACUOLATION PRESENT
[2017-02-08 06:32] LABS: POIKILOCYTOSIS SLIGHT; POLYCHROMASIA SLIGHT; SCHISTOCYTES SLIGHT
[2017-02-08] MEDS ORDERED: GLUCAGON,HUMAN RECOMB 1 MG INJ IM PRN (06:48)
[2017-02-08] MEDS ORDERED: INSULIN LISPRO 100 UNIT/ML 3 ML VIAL SUBCUT PRN (06:48)
[2017-02-08] MEDS ORDERED: DEXTROSE 50%-WATER 25 GM/50 ML DISP.SYRIN IV PRN ×2 (06:48)
[2017-02-08] MEDS ORDERED: DEXTROSE 40% GEL 15 GM TUBE PO PRN ×2 (06:48)
--- NOTE | 2017-02-08 06:49 | PDOC CONSULTATION ---
Consultation Consult Date: 02/08/17 Attending physician:: SALINA QUIÑONES Consult reason:: hypotension History of Present Illness Admission Date/PCP: 02/05/17 06:30 FLORA DODD History of Present Illness: ALVARO MUJICA is a 72 year old female with past medical history of hypertension, borderline diabetes mellitus, fibromyalgia, chronic kidney disease , morbid obesity who was admitted on 02/05/2017 for left knee arthroplasty. I was consulted for hypotension. Patient was hypotensive earlier in the evening with a systolic blood pressure in the 60s which apparently responded to 1 L normal saline bolus. Patient's blood pressure subsequently went down yet again to a systolic of the 60s. Patient denies any chest pain, shortness of breath. Her daughter is present at bedside much of the history is obtained from her. Patient apparently had 8-10 diarrheal bowel movements today as well as significant nausea and vomiting. Her daughter reports the patient had not had a bowel movement since surgery. Patient apparently has a history of 2 prior small bowel obstructions. Patient has been afebrile. Past Medical History Cardiac Medical History: Reports: Hypertension Denies: Atrial Fibrillation, Congestive Heart Failure, Coronary Artery Disease, Myocardial Infarction, Hyperlipidema, Peripheral Vascular Disease, Pulmonary Embolism, Heart Murmur Pulmonary Medical History: Reports: Asthma - SOB on exertion , Bronchitis - 10 yrs ago , Pneumonia - 10 yrs ago Denies: Chronic Obstructive Pulmonary Disease (COPD), Respiratory Failure, Sleep Apnea, Tuberculosis Neurological Medical History: Endocrine Medical History: Reports: Diabetes Mellitus Type 2 Denies: Hyperthyroidism, Hypothyroidism Renal/ Medical History: Denies: End Stage Renal Disease Malignancy Medical History: Denies: Lung Cancer GI Medical History: Reports: Gastroesophageal Reflux Disease Denies: Crohn's Disease, Hiatal Hernia Musculoskeltal Medical History: Reports: Arthritis, Fibromyalgia Psychiatric Medical History: Reports: Depression Denies: Bipolar Disorder, Post Traumatic Stress Disorder Hematology: Past Surgical History Past Surgical History: Reports: Appendectomy, Cholecystectomy, Orthopedic Surgery, Other - Ex lap for bowel obstruction Denies: Amputation, Section, Colostomy, Coronary Artery Bypass Graft , Gastric Bypass Surgery, Herniorrhaphy, Hysterectomy, Mastectomy, Pacemaker, Tonsillectomy, Tubal Ligation Social History Smoking Status: Former Smoker Frequency of Alcohol Use: None Hx Recreational Drug Use: No Hx Prescription Drug Abuse: No - Advance Directive Resuscitation Status: Full Code Surrogate healthcare decision maker:: , Buddy Mujica Family History Family History: CAD, Hypertension Parental Family History Reviewed: Yes Children Family History Reviewed: Yes Sibling(s) Family History Reviewed.: Yes Medication/Allergy Home Medications: Carvedilol [Coreg 25 mg Tablet] 25 mg PO Q12 12/23/13 Tramadol HCl 50 mg PO QIDP PRN 12/23/13 Metformin HCl 500 mg PO DAILY 12/31/15 Amlodipine Besylate 5 mg PO DAILY 01/24/17 Allopurinol [Zyloprim] 300 mg PO DAILY 02/05/17 Amitriptyline HCl 10 mg PO DAILY 02/05/17 Gabapentin 600 mg PO Q6 02/05/17 Lisinopril/Hydrochlorothiazide [Lisinopril-Hctz 20-25 mg Tab] 1 tab PO DAILY Allergies/Adverse Reactions: No Known Allergies Allergy (Verified 01/29/17 09:27) Review of Systems Constitutional: PRESENT: fatigue. ABSENT: chills, fever(s), headache(s), weight gain, weight loss Eyes: ABSENT: visual disturbances Ears: ABSENT: hearing changes Cardiovascular: ABSENT: chest pain, dyspnea on exertion, edema, orthropnea, palpitations Respiratory: ABSENT: cough, hemoptysis Gastrointestinal: PRESENT: abdominal pain, diarrhea, nausea, vomiting. ABSENT: constipation, hematemesis, hematochezia Genitourinary: ABSENT: dysuria, hematuria Musculoskeletal: PRESENT: joint swelling - Left knee Integumentary: ABSENT: rash, wounds Neurological: ABSENT: abnormal gait, abnormal speech, confusion, dizziness, focal weakness, syncope Psychiatric: ABSENT: anxiety, depression, homidical ideation, suicidal ideation Endocrine: ABSENT: cold intolerance, heat intolerance, polydipsia, polyuria Hematologic/Lymphatic: ABSENT: easy bleeding, easy bruising Physical Exam Vital Signs: Temp Pulse Resp BP Pulse Ox 97.7 F 91 19 133/88 H 97 02/07/17 22:20 02/07/17 22:20 02/07/17 22:20 02/07/17 22:20 02/07/17 22:20 Intake & Output 02/06/17 02/07/17 02/08/17 06:59 06:59 06:59 Intake Total 5927 1570 4735 Output Total 2100 200 Balance 3827 1370 4735 Weight 136.08 kg General appearance: PRESENT: morbidly obese, well-developed, well-nourished, other - Moderate distress, pale and acutely ill-appearing Head exam: PRESENT: atraumatic, normocephalic Eye exam: PRESENT: conjunctiva pink, conjunctiva pale, EOMI. ABSENT: PERRLA - Pupils 3 mm equal round and reactive though minimally, scleral icterus Ear exam: PRESENT: normal external ear exam Mouth exam: PRESENT: dry mucosa, tongue midline Neck exam: ABSENT: JVD, lymphadenopathy, thyromegaly, tracheal deviation Respiratory exam: PRESENT: clear to auscultation robert, symmetrical, unlabored. ABSENT: crackles, rales, rhonchi, wheezes Cardiovascular exam: PRESENT: RRR, +S1, +S2, systolic murmur. ABSENT: diastolic murmur, rubs Pulses: PRESENT: normal dorsalis pedis pul Vascular exam: PRESENT: normal capillary refill GI/Abdominal exam: PRESENT: normal bowel sounds, soft, tenderness - diffuse tenderness. ABSENT: distended, firm, guarding, mass, Chavez's sign, organolmegaly, rebound, rigid Rectal exam: PRESENT: deferred Extremities exam: PRESENT: full ROM. ABSENT: calf tenderness, clubbing, pedal edema Neurological exam: PRESENT: alert, awake, oriented to person, oriented to place , oriented to time, oriented to situation, CN II-XII grossly intact. ABSENT: motor sensory deficit Psychiatric exam: PRESENT: anxious, appropriate affect, normal mood. ABSENT: homicidal ideation, suicidal ideation Skin exam: PRESENT: dry, intact, pallor, warm. ABSENT: cyanosis, rash Results Laboratory Results: 02/08/17 05:32 02/07/17 02/08/17 02/08/17 06:00 05:32 05:32 WBC 8.5 RBC 2.84 L Hgb 9.3 L Hct 27.1 L MCV 95 MCH 32.6 MCHC 34.2 RDW 15.7 H Plt Count 233 Seg Neutrophils % Not Reportable Lymphocytes % Not Reportable Monocytes % Not Reportable Eosinophils % Not Reportable Basophils % Not Reportable Absolute Neutrophils Not Reportable Absolute Lymphocytes Not Reportable Absolute Monocytes Not Reportable Absolute Eosinophils Not Reportable Absolute Basophils Not Reportable Sodium 137.8 Potassium 4.4 Chloride 106 Carbon Dioxide 16 L Anion Gap 16 BUN 41 H Creatinine 3.61 H Est GFR ( Amer) 15 L Est GFR (Non-Af Amer) 12 L Glucose 105 Calcium 8.4 Magnesium 1.4 L Impressions: Knee X-Ray 02/05/17 09:50 IMPRESSION: Total knee arthroplasty. Status: Imported from PACS Assessment & Plan - Diagnosis (1) Hypotension Qualifiers: Hypotension type: unspecified hypotension type Qualified Code(s): I95.9 - Hypotension, unspecified Is this a current diagnosis for this admission?: Yes Plan: Likely secondary to hypovolemia, but concerns for sepsis in light of diarrhea. Check blood cultures, UA and urine culture, chest x-ray and C. difficile as well as occult blood. Type and screen patient. Transfer patient to the ICU with concerns for pressor requirement. (2) Acute on chronic renal failure Qualifiers: Acute renal failure type: unspecified Chronic kidney disease stage: stage 4 (severe) Qualified Code(s): N17.9 - Acute kidney failure, unspecified; N18.4 - Chronic kidney disease, stage 4 (severe); N18.4 - Chronic kidney disease , stage 4 (severe); N18.4 - Chronic kidney disease, stage 4 (severe); N18.4 - Chronic kidney disease, stage 4 (severe) Is this a current diagnosis for this admission?: Yes Plan: Patient with a baseline creatinine of approximately 2-2.2. Currently 3.61. We will consult her assistant oceanographer, but currently believe that this is secondary to hypovolemia. 01/18/17 01/29/17 02/06/17 15:11 10:22 07:02 Creatinine 2.01 H 2.22 H 2.18 H 02/08/17 05:32 Creatinine 3.61 H (3) Metabolic acidosis Is this a current diagnosis for this admission?: Yes Plan: Check an ABG (4) Diarrhea Qualifiers: Diarrhea type: presumed infectious Qualified Code(s): A09 - Infectious gastroenteritis and colitis, unspecified Is this a current diagnosis for this admission?: Yes Plan: Pending C. difficile and occult blood. Place patient empirically on Flagyl pending C. difficile. (5) Arthritis of left knee Is this a current diagnosis for this admission?: Yes Plan: Defer treatment and wound management to the primary orthopedic team (6) GERD (gastroesophageal reflux disease) Qualifiers: Esophagitis presence: esophagitis presence not specified Qualified Code(s) : K21.9 - Gastro-esophageal reflux disease without esophagitis Is this a current diagnosis for this admission?: Yes (7) Morbid obesity with BMI of 45.0-49.9, adult Is this a current diagnosis for this admission?: Yes (8) Nrz-[id number]-gpluamjth diabetes mellitus without complications Qualifiers: Diabetes mellitus fdc insulin use: without fdc use Qualified Code(s): E11.9 - Type 2 diabetes mellitus without complications Is this a current diagnosis for this admission?: Yes Plan: Hold metformin This is not a medication I would recommend for use in this patient with a baseline creatinine of 2-2.2. Place on Accu-Cheks every 6 and sliding scale insulin. - Time Time Spent: 50 to 70 Minutes Medications reviewed and adjusted accordingly: Yes - Plan Summary Plan Summary: Total time spent with patient including patient education, physical examination , discussion with primary physician, Dr. Quiñones, and formulation of plan was 65 minutes.
[2017-02-08] MEDS ORDERED: NALOXONE HCL INJ/PF 0.4 MG/1 ML SDV IV ONE (06:50)
[2017-02-08] MEDS: MAGNESIUM SULFATE/D5W 1 GM/100 ML RTUPB IV SCH ×2 (06:51→08:00)
--- NOTE | 2017-02-08 06:58 | PDOC PROGRESS REPORT ---
Subjective Progress Note for:: 02/08/17 Subjective:: Patient is resting quietly and unarousable with name calling this morning. Patient's family was present in the room and gave brief synopsis of difficulties with blood pressure, nausea vomiting, bowel incontinence overnight. Patient's family also informed orthopedic staff that hospitalist services have been consulted to assess for etiology of patient's nausea vomiting and drops in blood pressure. This was helpful as nursing staff notes were not indicative of any problems overnight. Reason For Visit: M17.12 UNILATERAL PRIMARY OSTEOARTHRITIS, LEFT KNE Physical Exam Vital Signs: Temp Pulse Resp BP Pulse Ox 36.6 C 94 19 115/96 H 89 L 02/08/17 04:32 02/08/17 04:32 02/07/17 22:20 02/08/17 04:32 02/08/17 04:32 Intake & Output 02/06/17 02/07/17 02/08/17 06:59 06:59 06:59 Intake Total 5927 1570 4735 Output Total 2100 200 0 Balance 3827 1370 4735 Weight 136.08 kg General appearance: PRESENT: mild distress Head exam: PRESENT: atraumatic, normocephalic Additional comments: Evidence of dried vomit around mouth. Respiratory exam: PRESENT: unlabored Vascular exam: PRESENT: pallor Additional comments: Patient is lying in bed in Trendelenburg position with bilateral lower extremities in full extension. Her postop site dressing is saturated with sreedhar blood. This dressing is changed and the new dressing is placed and clean dry and intact. Her sensory and motor functions are intact and her distal neurovascular exam is intact. There is minimal lower extremity and pedal edema. Musculoskeletal exam: PRESENT: ambulatory Additional comments: Patient has continued to make progress with physical therapy ambulating 80 feet independently. She will continue to work with physical therapy throughout her stay at the hospital to improve strength range of motion of the left lower extremity. Although with possible diagnosis of C. difficile and may be difficult for patient to continue work with physical therapy until she is under proper treatment with appropriate antibiotics. Additional comments: Patient asleep and unarousable with name calling this morning Psychiatric exam: PRESENT: other - Patient asleep this morning. Skin exam: PRESENT: dry, intact, pallor, warm. ABSENT: cyanosis, rash Results Laboratory Results: 02/08/17 05:32 02/08/17 05:32 02/08/17 02/08/17 05:32 05:32 WBC 21.2 H D RBC 3.37 L Hgb 10.7 L Hct 32.5 L MCV 96 MCH 31.8 MCHC 33.0 RDW 16.3 H Plt Count 230 Seg Neutrophils % Not Reportable Lymphocytes % Not Reportable Monocytes % Not Reportable Eosinophils % Not Reportable Basophils % Not Reportable Absolute Neutrophils Not Reportable Absolute Lymphocytes Not Reportable Absolute Monocytes Not Reportable Absolute Eosinophils Not Reportable Absolute Basophils Not Reportable Sodium 137.8 Potassium 4.4 Chloride 106 Carbon Dioxide 16 L Anion Gap 16 BUN 41 H Creatinine 3.61 H Est GFR ( Amer) 15 L Est GFR (Non-Af Amer) 12 L Glucose 105 Calcium 8.4 Magnesium 1.4 L Impressions: Knee X-Ray 02/05/17 09:50 IMPRESSION: Total knee arthroplasty. Assessment & Plan - Diagnosis (1) Arthritis of left knee Is this a current diagnosis for this admission?: Yes - Plan Summary Plan Summary: 72-year-old white female 3 days status post total left knee arthroplasty. Patient's surgical site is healing appropriately and I am not concerned for infection at this time. Her dressing was changed this morning and the new dressing was placed and is clean dry and intact. Patient has recently as of last night suffered irregular drops in blood pressure, nausea vomiting and stool incontinence. She has been placed on blood pressure support and hospitalist has been consulted for evaluation of etiology of nausea vomiting and stool incontinence. As of this time hospitalist is evaluating for C. difficile infection. Pending results of the stool sample she will likely be placed on appropriate antibiotic therapy. We will plan for discharge once these additional issues are taken care of.
[2017-02-08] MEDS ORDERED: METRONIDAZOLE 500 MG/NS RTU 100 ML IV ONE (07:00)
[2017-02-08 07:07] LABS: ARTERIAL BLOOD BASE EXCESS -9.4 mmol/L; ARTERIAL BLOOD O2 SATURATION 94.7 % (94-98)
[2017-02-08 07:40] LABS: APPEARANCE,URINE CLOUDY; BILIRUBIN,URINE MODERATE (NEGATIVE); GLUCOSE, URINE NEGATIVE (NEGATIVE); KETONES,URINE 25 mg/dL (NEGATIVE); LEUKOCYTE ESTERASE,URINE TRACE (NEGATIVE); NITRITE,URINE NEGATIVE (NEGATIVE); PROTEIN,URINE 100 mg/dL (NEGATIVE); URINE SPECIFIC GRAVITY 1.023; UROBILINOGEN,URINE NEGATIVE mg/dL (<2.0)
[2017-02-08 07:41] LABS: BACTERIA,URINE 2+ /HPF; GRANULAR CASTS,URINE 0-1 /LPF
[2017-02-08] MEDS ORDERED: DEXTROSE 5%-WATER 250 ML with NOREPINEPHRINE BITARTRATE 4 MG IV PRN ×2 (07:43)
[2017-02-08] MEDS ORDERED: NOREPINEPHRINE BITARTRATE INJ/PF 4 MG/4 ML SDV IV ONE (07:55)
--- NOTE | 2017-02-08 07:58 | EKG REPORT ---
SEVERITY:- ABNORMAL ECG - SINUS RHYTHM NONSPECIFIC ST-T CHANGES ANTEROLAT LEADS : Confirmed by: Tj Ramos MD 08-Feb-2017 07:58:02
[2017-02-08] MEDS: DEXTROSE 5%-WATER 250 ML with NOREPINEPHRINE BITARTRATE 4 MG IV PRN ×6 (08:05→21:38)
[2017-02-08] MEDS ORDERED: PIPERACILLIN SODIUM/TAZOBACTAM 4.5 GM in NORMAL SALINE 100 ML IV SCH (08:30)
[2017-02-08] MEDS ORDERED: DEXTROSE 5%-WATER 250 ML with PHENYLEPHRINE HCL 40 MG IV PRN ×2 (08:47)
[2017-02-08] MEDS ORDERED: PHENYLEPHRINE HCL INJ/PF 10 MG/1 ML SDV ONE (09:10)
[2017-02-08] MEDS ORDERED: LACTOBACILLUS ACIDOPHILUS 250 MG TAB PO SCH (10:00)
--- NOTE | 2017-02-08 10:23 | RADIOLOGY REPORT (SQ) ---
EXAM DESCRIPTION: CHEST SINGLE VIEW COMPLETED DATE/TIME: 02/08/2017 10:14 am REASON FOR STUDY: Central line/sepsis COMPARISON: Chest films 01/29/2017, 01/18/2017, 12/31/2015 EXAM PARAMETERS: NUMBER OF VIEWS: One view. TECHNIQUE: Single frontal radiographic view of the chest acquired. RADIATION DOSE: NA LIMITATIONS: None. FINDINGS: Right jugular central line tip superior vena cava. No pneumothorax. LUNGS AND PLEURA: There is bibasilar bandlike airspace disease likely atelectasis. Pneumonia could n ot be excluded. MEDIASTINUM AND HILAR STRUCTURES: No masses. Contour normal. HEART AND VASCULAR STRUCTURES: Heart normal in size. Normal vasculature. BONES: No acute findings. HARDWARE: None in the chest. OTHER: No other significant finding. IMPRESSION: Right jugular central line tip superior vena cava. No pneumothorax. Bibasilar airspace disease likely atelectasis. Pneumonia could not entirely be excluded TECHNICAL DOCUMENTATION: JOB ID: [id number] [employer]- All Rights Reserved
[2017-02-08] MEDS: PIPERACILLIN SODIUM/TAZOBACTAM 3.375 GM in NORMAL SALINE 100 ML IV SCH ×3 (10:30→21:55)
--- NOTE | 2017-02-08 10:33 | OPERATIVE REPORT E ---
Operative Report NAME: ALVARO MUJICA : 1945 AGE: 72Y DATE OF SURGERY: 02/08/2017 ROOM: 601 PREOPERATIVE DIAGNOSIS: Poor veins for IV access and low hemoglobin. POSTOPERATIVE DIAGNOSIS: Poor veins for IV access and low hemoglobin. PROCEDURE: Placement of right internal jugular vein triple-lumen catheter under ultrasound guidance. SURGEON: NITIN PA M.D. ANESTHESIA: Local. INDICATION: This is a 72-year-old female with noted severe anemia with hypotension and poor veins for IV access. Patient needed a central line. DESCRIPTION OF PROCEDURE: Patient was placed in a Trendelenburg position with the neck extended to the left. The right neck was then prepped and draped in the usual sterile fashion. With the use of ultrasound, the right internal jugular vein was then identified. Local anesthesia infiltrated and the right internal jugular vein subsequently punctured and guidewire passed through the needle towards the area of the superior vena cava. The insertion site was then dilated. The needle was removed and a triple-lumen catheter inserted through the guidewire up to a distance of about 15 cm towards the area of the superior vena cava. Next, the catheter was then anchored to the skin with 3-0 silk. All the ports were then aspirated with blood easily and infused saline easily. Biopatch placed at the insertion site and a *------* dressing placed over. A chest x-ray will be obtained for placement. Patient tolerated the procedure well. DICTATING PHYSICIAN: NITIN PA M.D. [id number] PHY#: [id number] ID: [id number] JOB#: [id number] ACCT: [id number] cc:NITIN PA M.D. >
[2017-02-08] MEDS ORDERED: NORMAL SALINE INJ/PF 0.9% 10 ML SDV IV PRN (11:17)
[2017-02-08] MEDS ORDERED: METRONIDAZOLE 500 MG/NS RTU 100 ML IV SCH (12:00)
--- NOTE | 2017-02-08 12:02 | RADIOLOGY REPORT (SQ) ---
EXAM DESCRIPTION: U/S RETROPERITON (RENAL/AORTA) COMPLETED DATE/TIME: 02/08/2017 11:44 am REASON FOR STUDY: Oliguric ARF M17.12 UNILATERAL PRIMARY OSTEOARTHRITIS, LEFT KNEE COMPARISON: None. TECHNIQUE: Dynamic and static grayscale images acquired of the kidneys and bladder and recorded on P ACS. Additional selected color Doppler and spectral images recorded. LIMITATIONS: Study is limited somewhat due to the portable technique. Study is also limited somewha t due to the patient's body habitus. FINDINGS: RIGHT KIDNEY: 10.4 cm in length. Normal echogenicity. No solid or suspicious masses. No hydronephrosis. No calcifications. LEFT KIDNEY: 9.9 cm in length. Normal echogenicity. No solid or suspicious masses. No hydronep hrosis. No calcifications. BLADDER: The bladder is not well evaluated due to its non distended state. OTHER FINDINGS: No other significant finding. IMPRESSION: Somewhat limited study as noted above. No significant renal abnormalities were identifi ed. The bladder is not well evaluated due to its non distended state TECHNICAL DOCUMENTATION: JOB ID: [id number] [email or web address]- All Rights Reserved
[2017-02-08] MEDS: ASPIRIN 81 MG TABLET, ENT COATED PO SCH (12:25)
--- NOTE | 2017-02-08 12:54 | OPERATIVE REPORT E ---
Operative Report NAME: ALVARO MUJICA : 1945 AGE: 72Y DATE OF SURGERY: 02/08/2017 ROOM: 601 PREOPERATIVE DIAGNOSIS: PATIENT NEEDED ARTERIAL LINE FOR VITAL SIGN MONITORING IN ICU. POSTOPERATIVE DIAGNOSIS: PATIENT NEEDED ARTERIAL LINE FOR VITAL SIGN MONITORING IN ICU. OPERATION: Placement of right radial arterial line. SURGEON: NITIN PA M.D. ANESTHESIA: Local. INDICATION: This 72-year-old female with sepsis and hypertension needed arterial line for close monitoring of vital signs. DESCRIPTION OF PROCEDURE: Patient is placed in the supine position and the right wrist prepped and draped in the usual sterile fashion. Local anesthesia was palpated over the palpable radial artery. The radial artery was then punctured and guidewire passed through the artery and Angiocath placed over the guidewire. Guidewire was subsequently pulled out and a gush of blood noted. It was then connected to a pressure line. The catheter was then anchored to the skin with 4-0 Prolene. Sterile dressing was placed over the operative site. Patient tolerated the procedure well. DICTATING PHYSICIAN: NITIN PA M.D. [id number] PHY#: [id number] ID: [id number] JOB#: [id number] ACCT: [id number] cc:NITIN PA M.D. >
[2017-02-08] MEDS: MORPHINE SULFATE 10 MG/ML INJ IV PRN ×2 (13:17→18:32)
--- NOTE | 2017-02-08 15:43 | RADIOLOGY REPORT (SQ) ---
EXAM DESCRIPTION: CT ABD/PELVIS NO ORAL OR IV COMPLETED DATE/TIME: 02/08/2017 3:23 pm REASON FOR STUDY: ABD pain, diarrhea, vomiting, H/O SBO M17.12 UNILATERAL PRIMARY OSTEOARTHRITIS, L EFT KNEE COMPARISON: 08/09/2014 TECHNIQUE: CT scan of the abdomen and pelvis performed without intravenous or oral contrast. Images reviewed with lung, soft tissue, and bone windows. Reconstructed coronal and sagittal MPR images revi ewed. All images stored on PACS. All CT scanners at this facility use dose modulation, iterative reconstruction, and/or weight based d osing when appropriate to reduce radiation dose to as low as reasonably achievable (ALARA). [facility]: Dose Right [facility]: CareDose [facility]: Dose Right [facility]: Teradose 4D [facility]: Smart Intiza RADIATION DOSE: CT Rad equipment meets quality standard of care and radiation dose reduction techniq ues were employed. CTDIvol: 31.4 mGy. DLP: 1831 mGy-cm.mGy. LIMITATIONS: None. FINDINGS: LOWER CHEST: A prominent pneumatocoele is present in the right lung base. There is mild o pacification in the left lower lobe posteriorly. NON-CONTRASTED LIVER, SPLEEN, ADRENALS: Evaluation limited by lack of IV contrast. No identified sign ificant masses. PANCREAS: No masses. No peripancreatic inflammatory changes. GALLBLADDER: Surgical clips are present in the gallbladder fossa. RIGHT KIDNEY AND URETER: No suspicious masses. Assessment limited by lack of IV contrast. No signif icant calcifications. No hydronephrosis or hydroureter. LEFT KIDNEY AND URETER: No suspicious masses. Assessment limited by lack of IV contrast. No signifi cant calcifications. No hydronephrosis or hydroureter. AORTA AND RETROPERITONEUM: No aneurysm. Atherosclerosis. BOWEL AND PERITONEAL CAVITY: The stomach is somewhat distended with fluid and air. No masses or infl ammatory changes are seen in the non contrasted bowel. APPENDIX: Not identified. PELVIS, BLADDER, AND ABDOMINAL WALL:A Huff catheter is present in the urinary bladder. There is a m inimal amount free fluid in the pelvis. BONES: Lumbar degenerative disc changes and mild spondylosis. OTHER: No other significant finding. IMPRESSION: 1. Stable pneumatocoele right lower lobe. 2. Cannot exclude minimal infiltrate in the left lower lobe posteriorly. 3. The stomach is somewhat distended. 4. There is minimal free fluid in the pelvis. 5. Osseous findings as described. COMMENT: Quality ID # [id number]: Final reports with documentation of one or more dose reduction techniques (e.g., Automated exposure control, adjustment of the mA and/or kV according to patient size, use of iterative reconstruction technique) TECHNICAL DOCUMENTATION: JOB ID: [id number] [email or web address]- All Rights Reserved
[2017-02-08] MEDS ORDERED: VANCOMYCIN HCL 0 MG in DEXTROSE 5%-WATER 250 ML IV NR (16:45)
[2017-02-08] MEDS ORDERED: PHARMACY COMMUNICATION ORDER MC NR ×2 (16:45→19:45)
[2017-02-08 17:09] LABS: ABSOLUTE EOSINOPHILS # (AUTO) 0.1 10^3/uL (0.0-0.6); ABSOLUTE LYMPHOCYTES (AUTO) 1.2 10^3/uL (0.5-4.7); ABSOLUTE MONOCYTES (AUTO) 1.6 10^3/uL (0.1-1.4); ABSOLUTE NEUT (AUTO) 12.9 10^3/uL (1.7-8.2); BASOPHILS % (AUTO) 0.2 % (0-2); EOSINOPHILS % (AUTO) 0.3 % (0-6); HEMATOCRIT 30.1 % (36.0-47.0); HGB HCT DIFFERENCE -0.1; LYMPHOCYTES % (AUTO) 7.6 % (13-45); MEAN CORPUSCULAR HEMOGLOBIN 31.8 pg (27.0-33.4); MEAN CORPUSCULAR HGB CONC 33.3 g/dL (32.0-36.0); MEAN CORPUSCULAR VOLUME 96 fl (80-97); MONOCYTES % (AUTO) 9.9 % (3-13); RED BLOOD COUNT 3.15 10^6/uL (3.72-5.28); RED CELL DISTRIBUTION WIDTH 16.4 % (11.5-14.0); WHITE BLOOD COUNT 15.8 10^3/uL (4.0-10.5)
--- NOTE | 2017-02-08 17:09 | PROGRESS NOTE E ---
Progress Note NAME: ALVARO MUJICA : 1945 AGE: 72Y DATE: 02/08/2017 ROOM: 601 CODE STATUS: FULL CODE. SUBJECTIVE: The patient has been seen on 3 separate occasions on rounds throughout the day. This note will be a summary of these contacts. On initial assessment the patient was lying in bed. She was awake, alert, was conversational and described herself as "miserable." The patient did complain of back pain but no other complaints other than just a general malaise. The patient at this time was MAP'ing in the 40s and, therefore, Levophed was added and another bolus was given to the patient. Both central line and A line had been placed with an improvement in MAP readings with this. The patient's labs from this morning revealed a white count of 21,000. Additionally, the patient's creatinine is 3.6. The patient was found to be oliguric with no urine output even with Huff placement. Therefore, a renal ultrasound had been obtained which did not reveal any obstructive uropathy, no evidence of hydronephrosis or overt evidence of obstructive process. Given the patient's significant hypotensive state and evidence of septic shock, lactic acid was added, and in spite of the patient being on metformin her lactic acid level was merely 2. The patient's acidosis currently has a chemistry bicarbonate of 16. The patient's blood gas was reflective of slight acidosis at 7.32. The patient's electrolytes were replaced, including magnesium. Throughout the day collectively the patient has received a 3 L bolus and has been on continuous fluids. In spite of 2 L bolus, the patient's MAP still maintained in the 55 range and, therefore, an additional pressor was added. The patient has remained alert throughout the day, quite easily arousable; however, still complains of overall feeling poorly. The patient has had no further evidence of vomitus or diarrhea. The patient's stool studies have been unremarkable. NG tube will be placed. Surgery has agreed to see the patient and review the pending CT scan. At the time of this dictation, currently awaiting afternoon labs and the patient still remains on pressors. The patient's family has been updated throughout the day. The patient's CVP lastly was found to be 10; therefore, the patient was given yet another bolus. Echocardiogram is pending. I have a suspicion the patient may be preload dependent. REVIEW OF SYSTEMS: The rest of the review of systems is negative. MEDICATIONS: Medications have been reviewed. OBJECTIVE: GENERAL: The patient is a 72-year-old female who is awake, alert. She is oriented to person, place, time, and situation. She is a little delayed. She does not currently appear distressed. VITAL SIGNS: As follows: Temperature is 97.7, pulse 87, respirations 21, blood pressure is 115/42 via ART line with oxygen saturation of 99% on 2 L nasal cannula. SKIN: Pale, dry. No rash. She is not diaphoretic. HEENT: Pupils are reactive. Conjunctiva is pink. There is no evidence of JVP. CARDIOVASCULAR: Heart is regular, is no rub. CHEST: Clear, symmetrical, unlabored. ABDOMEN: Firm. There is no area of focal tenderness. Hypoactive bowel sounds are noted. EXTREMITIES: No clubbing, cyanosis, edema. GENITOURINARY: The patient's Huff is draining a scant amount of urine. PSYCHIATRIC: The patient appears appropriate at this time. DIAGNOSTICS: Lab values are as follows. Hematology obtained on 02/08/2017: WBCs are 21.1, hemoglobin is 10.7, hematocrit is 32.5, platelet count is 230,000. Chemistry obtained on 02/08/2017: Sodium is 137, potassium 4.4, chloride is 105, carbon dioxide 16, BUN 41, creatinine is 3.6, glucose 105, calcium is 8.4, magnesium is 1.4, lactic acid is 2. Urine and blood cultures are pending. IMPRESSION AND PLAN: 1. SEPTIC SHOCK. Uncertain of exact etiology of this. Patient's surgical site does not appear remarkable; however, the patient has had intense diarrhea. Although C. diff is negative, it could be related to this. However, the patient also has findings on chest x-ray that could be consistent with a pneumonia. Therefore, will apply broad-spectrum coverage and also continue Flagyl for the gut. Follow. 2. ACUTE ON CHRONIC STAGE 4 KIDNEY DISEASE. It appears that the patient's baseline creatinine is in the 2 range and has trended up to 3.61. Have discontinued nephrotoxic medications, including ibuprofen, BYRON inhibitor, and metformin. Additionally, hypotension was most likely contributory to this and the patient's antihypertensives are on hold as well. Currently awaiting repeat labs. Will follow. 3. METABOLIC ACIDOSIS. Hopefully this has improved with hydration. Currently awaiting repeat chemistries. 4. ARTHRITIS OF THE LEFT KNEE. Management per primary team. The site does appear healing and approximating. 5. DIABETES MELLITUS, TYPE 2. The patient is not insulin dependent; however, will add sliding-scale coverage for now. The patient does not need to resume metformin given her baseline creatinine. DISPOSITION: THE PATIENT IS A FULL CODE. Pending the patient's symptomatology and diagnostic findings, will re-evaluate as needed. Time spent on this critical care visit, including assessment/plan, physical examination, patient education, specialty collaboration and family meeting, is 90 minutes. DICTATING PHYSICIAN: SONDRA SCOTT NP [id number] PHY#: [id number] ID: [id number] JOB#: [id number] ACCT: [id number] cc: > MTDD
[2017-02-08 17:26] LABS: ANION GAP 17 (5-19); BLOOD UREA NITROGEN 43 mg/dL (7-20); CARBON DIOXIDE 15 mmol/L (22-30); CHLORIDE 106 mmol/L (98-107); GLUCOSE 114 mg/dL (75-110); MAGNESIUM 1.9 mg/dL (1.6-2.3); POTASSIUM 4.6 mmol/L (3.6-5.0); SODIUM 137.5 mmol/L (137-145)
--- NOTE | 2017-02-08 17:33 | XCELERA REPORT ---
[address] [address] Transthoracic Echocardiogram Report Name: ALVARO MUJICA Age: 72 yrs Gender: Female : 1945 Patient Status: Inpatient Patient Location: ICU^601^A Study Date: 02/08/2017 11:02 AM Height: 67 in Weight: 300 lb BSA: 2.4 m2 Procedure: A two-dimensional transthoracic echocardiogram with color flow and Doppler was performed. Study Quality: Technically suboptimal. The study was technically difficult with many images being suboptimal in quality. Reason For Study: murmur History: murmur. Ordering Physician: JENI SIMONS Performed By: Holly Win Interpretation Summary The left ventricle is normal in size. There is normal left ventricular wall thickness. LV EF is > than 65% Left ventricular systolic function is normal. Doppler measurements suggest impaired left ventricular relaxation, which is associated with grade I/IV or mild diastolic dysfunction The left ventricular wall motion is normal. The right atrium is normal. The left atrial size is normal. There is no evidence of mitral valve prolapse. There is no mitral valve stenosis. There is no mitral regurgitation noted. There is mild aortic stenosis There is a peak gradient of 19 mm of Hg. There is no LVOT obstruction. No aortic regurgitation is present. There is no tricuspid stenosis. There is a mild amount of tricuspid regurgitation There is mild pulmonary hypertension by echo RVSP is 42 mm of Hg , with RA mean of 10. The pulmonic valve is not well visualized. There is no pericardial effusion. MMode/2D Measurements & Calculations RVDd: 2.7 cm LVIDd: 4.2 cm FS: 35.2 % Ao root diam: 3.2 cm IVSd: 1.1 cm LVIDs: 2.7 cm EDV(Teich): 77.0 ml LVPWd: 1.1 cm ESV(Teich): 27.0 ml Ao root area: 8.2 cm2 EF(Teich): 65.0 % LA dimension: 3.6 cm LVOT diam: 2.1 cm LVOT area: 3.4 cm2 Doppler Measurements & Calculations MV E max dorothy: MV P1/2t max dorothy: Ao V2 max: LV V1 max P.8 cm/sec 54.8 cm/sec 215.0 cm/sec 7.6 mmHg MV A max dorothy: MV P1/2t: 72.2 msec Ao max PG: LV V1 max: 84.9 cm/sec MVA(P1/2t): 3.0 cm2 18.5 mmHg 138.2 cm/sec MV E/A: 0.66 MV dec slope: ZAKI(V,D): 2.2 cm2 222.3 cm/sec2 PA V2 max: TR max dorothy: 130.3 cm/sec 283.7 cm/sec PA max PG: TR max P.2 mmHg 6.8 mmHg Left Ventricle The left ventricle is normal in size. There is normal left ventricular wall thickness. LV EF is > than 65%. Left ventricular systolic function is normal. Doppler measurements suggest impaired left ventricular relaxation, which is associated with grade I/IV or mild diastolic dysfunction. The left ventricular wall motion is normal. There is no thrombus. Right Ventricle The right ventricle is grossly normal size. Atria The right atrium is normal. The left atrial size is normal. Mitral Valve There is mild to moderate mitral annular calcification. There is no evidence of mitral valve prolapse. There is no vegetation seen on the mitral valve. There is no mitral valve stenosis. There is no mitral regurgitation noted. Aortic Valve There is no aortic valvular vegetation. There is mild aortic stenosis. There is a peak gradient of 19 mm of Hg. There is no LVOT obstruction. No aortic regurgitation is present. Tricuspid Valve There is no tricuspid stenosis. There is a mild amount of tricuspid regurgitation. There is mild pulmonary hypertension by echo. RVSP is 42 mm of Hg , with RA mean of 10. Pulmonic Valve The pulmonic valve is not well visualized. Great Vessels The aortic root is not well visualized but is probably normal size. Effusions There is no pericardial effusion. : JENI SIMONS > Syl Trinh
[2017-02-08] MEDS ORDERED: OXYCODONE HCL IR 5 MG TABLET NG PRN (18:00)
[2017-02-08] MEDS ORDERED: VANCOMYCIN HCL 500 MG in DEXTROSE 5%-WATER 100 ML IV SCH (18:00)
[2017-02-08] MEDS ORDERED: MAG HYDROX/AL HYDROX/SIMETH SUSP 30 ML UDCUP NG PRN (18:00)
[2017-02-08] MEDS ORDERED: ONDANSETRON 4 MG TAB.RAPDIS NG PRN (18:00)
[2017-02-08] MEDS ORDERED: ACETAMINOPHEN 325 MG TABLET NG PRN (18:00)
[2017-02-08] MEDS ORDERED: LACTOBACILLUS ACIDOPHILUS 250 MG TAB NG SCH (18:00)
--- NOTE | 2017-02-08 18:18 | RADIOLOGY REPORT (SQ) ---
EXAM DESCRIPTION: KUB/ABDOMEN (SINGLE VIEW) COMPLETED DATE/TIME: 02/08/2017 6:06 pm REASON FOR STUDY: Check Placement of NG Tube M17.12 UNILATERAL PRIMARY OSTEOARTHRITIS, LEFT KNEE COMPARISON: None. NUMBER OF VIEWS: One view. TECHNIQUE: Supine radiographic image of the abdomen acquired. LIMITATIONS: None. FINDINGS: BOWEL GAS PATTERN: Normal bowel gas pattern. No dilated loops. CALCIFICATIONS: No suspicious calcifications. SOFT TISSUES: No gross mass or suggestion of organomegaly. HARDWARE: An NG tube extends to the stomach. This is seen on the chest portion of the study. An int ernal jugular catheter is suggested with the tip in the superior vena cava. BONES: No acute fracture. No worrisome bone lesions. OTHER: No other significant finding. IMPRESSION: The NG tube appears to be in the stomach. Catheter placement as described. TECHNICAL DOCUMENTATION: JOB ID: [id number] [email or web address]- All Rights Reserved
[2017-02-08] MEDS: DEXTROSE 5%-WATER 250 ML with PHENYLEPHRINE HCL 40 MG IV PRN ×2 (18:33)
[2017-02-08] MEDS ORDERED: VANCOMYCIN HCL 1,500 MG in DEXTROSE 5%-WATER 250 ML IV SCH (19:00)
[2017-02-08] MEDS ORDERED: SODIUM BICARBONATE 8.4% INJ 50 MEQ/50 ML DISP.SYRIN ONE (19:35)
[2017-02-08] MEDS ORDERED: LORAZEPAM INJ 2 MG/1 ML VIAL IV ONE (19:45)
[2017-02-08] MEDS ORDERED: HALOPERIDOL LACTATE INJ 5 MG/1 ML VIAL IV PRN (19:57)
[2017-02-08 20:25] LABS: ARTERIAL BLOOD BASE EXCESS -10.9 mmol/L; ARTERIAL BLOOD O2 SATURATION 90.1 % (94-98)
[2017-02-08] MEDS ORDERED: SODIUM BICARBONATE 8.4% INJ 50 MEQ/50 ML DISP.SYRIN IV ONE (20:30)
[2017-02-08 20:39] LABS: ABSOLUTE LYMPHOCYTES (AUTO) 0.8 10^3/uL (0.5-4.7); ABSOLUTE MONOCYTES (AUTO) 1.2 10^3/uL (0.1-1.4); ABSOLUTE NEUT (AUTO) 10.4 10^3/uL (1.7-8.2); BASOPHILS % (AUTO) 0.2 % (0-2); EOSINOPHILS % (AUTO) 0.2 % (0-6); HEMATOCRIT 27.6 % (36.0-47.0); HGB HCT DIFFERENCE -0.6; LYMPHOCYTES % (AUTO) 6.8 % (13-45); MEAN CORPUSCULAR HGB CONC 32.6 g/dL (32.0-36.0); MEAN CORPUSCULAR VOLUME 95 fl (80-97); MONOCYTES % (AUTO) 9.5 % (3-13); RED CELL DISTRIBUTION WIDTH 16.2 % (11.5-14.0); SEGMENTED NEUTROPHILS % (AUTO) 83.3 % (42-78); WHITE BLOOD COUNT 12.5 10^3/uL (4.0-10.5)
[2017-02-08 20:48] LABS: PARTIAL THROMBOPLASTIN TIME 33.5 SEC (23.5-35.8); PROTHROMBIN TIME 14.8 SEC (11.4-15.4)
[2017-02-08 21:03] LABS: URINE CREATININE 89.9 mg/dL (15-278)
[2017-02-08 21:09] LABS: ALANINE AMINOTRANSFERASE 32 U/L (9-52); ALBUMIN 2.7 g/dL (3.5-5.0); ALKALINE PHOSPHATASE 196 U/L (38-126); ANION GAP 14 (5-19); ASPARTATE AMINO TRANSFERASE 37 U/L (14-36); BILIRUBIN,DIRECT 0.6 mg/dL (0.0-0.4); BILIRUBIN,TOTAL 0.6 mg/dL (0.2-1.3); BLOOD UREA NITROGEN 43 mg/dL (7-20); CALCIUM 7.7 mg/dL (8.4-10.2); CARBON DIOXIDE 18 mmol/L (22-30); CHLORIDE 105 mmol/L (98-107); CREATININE RESULT 3.62 mg/dL (0.52-1.25); GLUCOSE 133 mg/dL (75-110); POTASSIUM 4.2 mmol/L (3.6-5.0); SODIUM 136.8 mmol/L (137-145); TOTAL PROTEIN 5.2 g/dL (6.3-8.2)
[2017-02-08] MEDS ORDERED: DEXTROSE 5%-WATER 1000 ML 1,000 ML with SODIUM BICARBONATE 150 MEQ IV PRN ×2 (22:00)
[2017-02-09 00:41] LABS: ANION GAP 13 (5-19); BLOOD UREA NITROGEN 41 mg/dL (7-20); CALCIUM 7.6 mg/dL (8.4-10.2); CARBON DIOXIDE 18 mmol/L (22-30); CHLORIDE 105 mmol/L (98-107); CREATININE RESULT 3.53 mg/dL (0.52-1.25); GLUCOSE 117 mg/dL (75-110); POTASSIUM 4.1 mmol/L (3.6-5.0); SODIUM 135.7 mmol/L (137-145)
[2017-02-09 00:58] LABS: ABSOLUTE EOSINOPHILS # (AUTO) 0.1 10^3/uL (0.0-0.6); ABSOLUTE LYMPHOCYTES (AUTO) 1.1 10^3/uL (0.5-4.7); ABSOLUTE MONOCYTES (AUTO) 1.4 10^3/uL (0.1-1.4); ABSOLUTE NEUT (AUTO) 9.7 10^3/uL (1.7-8.2); BASOPHILS % (AUTO) 0.2 % (0-2); EOSINOPHILS % (AUTO) 0.4 % (0-6); HEMATOCRIT 25.4 % (36.0-47.0); HEMOGLOBIN 8.7 g/dL (12.0-15.5); HGB HCT DIFFERENCE 0.7; LYMPHOCYTES % (AUTO) 8.8 % (13-45); MEAN CORPUSCULAR HEMOGLOBIN 32.7 pg (27.0-33.4); MEAN CORPUSCULAR HGB CONC 34.4 g/dL (32.0-36.0); MEAN CORPUSCULAR VOLUME 95 fl (80-97); MONOCYTES % (AUTO) 11.1 % (3-13); RED BLOOD COUNT 2.67 10^6/uL (3.72-5.28); RED CELL DISTRIBUTION WIDTH 15.7 % (11.5-14.0); SEGMENTED NEUTROPHILS % (AUTO) 79.5 % (42-78); WHITE BLOOD COUNT 12.3 10^3/uL (4.0-10.5)
[2017-02-09] MEDS ORDERED: PANTOPRAZOLE SODIUM 40 MG VIAL IV ONE (01:00)
--- NOTE | 2017-02-09 02:02 | PDOC TRANSFER SUMMARY ---
General Admission Date/PCP: 02/05/17 06:30 FLORA DODD Admission Date: 02/05/17 Transfer Date: 02/09/17 Accepting Facility: [facility] Accepting Physician: Dr. Butler Resuscitation Status: Full Code - Transfer Diagnosis (1) Acute GI hemorrhage Is this a current diagnosis for this admission?: Yes (2) Septic shock Is this a current diagnosis for this admission?: Yes (3) LLL pneumonia Is this a current diagnosis for this admission?: Yes (4) Acute on chronic renal failure Is this a current diagnosis for this admission?: Yes (5) Metabolic acidosis Is this a current diagnosis for this admission?: Yes (6) Diarrhea Is this a current diagnosis for this admission?: Yes (7) Arthritis of left knee Is this a current diagnosis for this admission?: Yes (8) GERD (gastroesophageal reflux disease) Is this a current diagnosis for this admission?: Yes (9) Tzi-idbbjbb-ngeticurc diabetes mellitus without complications Is this a current diagnosis for this admission?: Yes (10) Melena Is this a current diagnosis for this admission?: Yes (11) Encephalopathy acute Is this a current diagnosis for this admission?: Yes (12) Morbid obesity with BMI of 45.0-49.9, adult Is this a current diagnosis for this admission?: Yes - Transfer Medications Home Medications: Carvedilol [Coreg 25 mg Tablet] 25 mg PO Q12 12/23/13 Tramadol HCl 50 mg PO QIDP PRN 12/23/13 Metformin HCl 500 mg PO DAILY 12/31/15 Amlodipine Besylate 5 mg PO DAILY 01/24/17 Allopurinol [Zyloprim] 300 mg PO DAILY 02/05/17 Amitriptyline HCl 10 mg PO DAILY 02/05/17 Gabapentin 600 mg PO Q6 02/05/17 Lisinopril/Hydrochlorothiazide [Lisinopril-Hctz 20-25 mg Tab] 1 tab PO DAILY Transfer Medications: Current Medications Acetaminophen (Tylenol 325 Mg Tablet) 650 mg NG Q4HP PRN PRN Reason: Temp greater than 101F Stop: 03/07/17 09:47 Al Hydrox/Mg Hydrox/Simethicone (Maalox Plus Susp 30 Udcup) 30 ml NG Q6HP PRN PRN Reason: constipation Stop: 03/07/17 09:47 Amitriptyline HCl (Elavil 10 Mg Tablet) 10 mg NG DAILY [facility] Stop: 03/08/17 09:59 Dextrose (Dextrose Inj 50% Syringe (25 Gm/50 Ml)) 12.5 gm IV PRN PRN; Protocol PRN Reason: FOR BG 50-69 IN ALERT PATIENT Stop: 03/10/17 06:47 Dextrose (Dextrose Inj 50% Syringe (25 Gm/50 Ml)) 25 gm IV PRN PRN PRN Reason: Protocol Stop: 03/10/17 06:47 Glucagon (Glucagen Inj 1 Mg Vial) 1 mg IM PRN PRN; Protocol PRN Reason: Evaluate for BG < 70 Stop: 03/10/17 06:47 Glucose (Glutose 40% Gel 15 Gm Tube) 15 gm PO PRN PRN; Protocol PRN Reason: FOR BG 50-69 IN ALERT PATIENT Stop: 03/10/17 06:47 Glucose (Glutose 40% Gel 15 Gm Tube) 30 gm PO PRN PRN; Protocol PRN Reason: FOR BG < 50 IN ALERT PATIENT Stop: 03/10/17 06:47 Heparin Sodium (Porcine) (Heparin Flush 10 Unit/Ml 5 Ml Disp.Syrg) 30 unit IV Q8 [facility] Stop: 03/10/17 13:59 Last Admin: 02/08/17 21:38 Dose: Not Given Heparin Sodium (Porcine) (Heparin Flush 10 Unit/Ml 5 Ml Disp.Syrg) 30 unit IV .AFTER EACH USE PRN PRN Reason: AFTER EACH INTERMITTENT USE Stop: 03/10/17 11:16 Sodium Chloride (Nacl 0.9% 1000 Ml Iv Soln) 1,000 mls @ 0 mls/hr IV ONCEP PRN; Wide Open PRN Reason: THIS MED IS NOT "PRN" Stop: 03/10/17 07:41 Piperacillin Sod/Tazobactam (Sod 3.375 gm/ Sodium Chloride) 100 mls @ 200 mls/ hr IV Q6A [facility] Stop: 02/15/17 08:59 Last Admin: 02/08/17 21:55 Dose: 3.375 gm Norepinephrine Bitartrate 4 mg (/ Dextrose) 250 mls @ 0 mls/hr IV CONTINUOUS PRN; Protocol; Titrate PRN Reason: THIS MED IS NOT "PRN" Stop: 03/10/17 07:42 Last Admin: 02/08/17 21:38 Dose: 4 mg Hard Fat/Phenylephrine 40 mg/ (Dextrose) 250 mls @ 0 mls/hr IV CONTINUOUS PRN; Protocol; Titrate PRN Reason: THIS MED IS NOT "PRN" Stop: 03/10/17 08:46 Last Admin: 02/08/17 18:33 Dose: 40 mg Vancomycin HCl 1,500 mg/ (Dextrose) 250 mls @ 166.667 mls/hr IV Q2D@1900 [facility] Stop: 02/15/17 18:59 Last Admin: 02/08/17 18:33 Dose: 1,500 mg Insulin Human Lispro (Humalog Insulin 100 Unit/1 Ml 3 Ml Vial) 0 - 12 unit SUBCUT ACHSP PRN PRN Reason: Protocol Stop: 03/10/17 06:47 Lactobacillus Acidophilus (Bacid 250 Mg Tablet) 500 mg NG BID [facility] Stop: 03/10/17 09:59 Last Admin: 02/08/17 18:32 Dose: 500 mg Morphine Sulfate (Morphine 10 Mg/Ml Inj) 2 mg IV Q1HP PRN PRN Reason: FOR PAIN SCALE OF 2-3 Stop: 02/12/17 09:47 Last Admin: 02/08/17 18:32 Dose: 2 mg Ondansetron HCl (Zofran Inj/Pf 4 Mg/2 Ml Sdv) 4 mg IV Q6HP PRN PRN Reason: nausea Stop: 03/07/17 09:47 Last Admin: 02/08/17 06:13 Dose: 4 mg Oxycodone HCl (Oxy-Ir 5 Mg Tablet) 5 mg NG Q6HP PRN PRN Reason: FOR PAIN SCALE OF 1 Stop: 02/12/17 09:47 Pantoprazole Sodium (Protonix Iv Inj 40 Mg Vial) 40 mg IV Q12 [facility] Stop: 02/12/17 00:29 Pharmacy Profile Note (Medication Communication Order) 1 each MC .NOTICE NR Stop: 03/10/17 16:44 Pharmacy Profile Note (Medication Communication Order) 1 each MC .NOTICE NR Stop: 03/10/17 19:44 Sodium Chloride (Saline Flush 2.5 Ml Monoject Prefil Syrin) 2.5 ml IV Q8 [facility] Stop: 03/07/17 13:59 Last Admin: 02/08/17 21:38 Dose: Not Given Sodium Chloride (Nacl 0.9% Inj/Pf 10 Ml Sdv) 10 ml IV .AFTER EACH USE PRN PRN Reason: AFTER EACH INTERMITTENT USE Stop: 03/10/17 11:16 - Allergies Allergies/Adverse Reactions: No Known Allergies Allergy (Verified 01/29/17 09:27) - Diet/Activity Discharge Diet: Other (Comments) Discharge Activity: Bedrest Hospital Course Hospital Course: Patient is a 72-year-old female with a past medical history of diabetes mellitus, chronic kidney disease stage IV, hypertension who was admitted on 02/05/17 for an elective left knee replacement. According to notes this was uneventful. Patient did not have a bowel movement until 02/08 at which time she began developing copious diarrhea having 8-10 stools. Patient was found to be hypotensive with a systolic of the 60s. Patient was given fluid resuscitation labs were drawn and she was transferred to the ICU. Patient was found to have a left lower lobe pneumonia on CAT scan. An NG tube was placed and patient's abdominal distention improved having a liter of dark NG aspirate. Patient subsequently continued to have dark stools which are occult blood positive. Patient was also found to have acute on chronic renal failure and has received adequate fluid resuscitation. A central line and art line were placed. Patient was started empirically on vancomycin and Zosyn for healthcare associated pneumonia. Cultures were obtained and were pending. Despite adequate fluid resuscitation, patient's urine output was not improving. Due to a lack of nephrology and GI services, patient was transferred to [facility] for ongoing care. Family is in agreement with this plan. Orthopedics corrections corporal is in agreement with this plan. Transfer was made by myself at the request of orthopedics corrections corporal. Physical Exam Vital Signs: Temp Pulse Resp BP Pulse Ox 100.2 F 109 H 18 127/76 H 99 02/09/17 01:38 02/08/17 22:00 02/09/17 00:45 02/08/17 23:15 02/09/17 01:02 Intake & Output 02/07/17 02/08/17 02/09/17 06:59 06:59 06:59 Intake Total 1570 4735 5521 Output Total 200 0 1610 Balance 1370 4735 3911 Exam: General: Resting comfortably, mildly tachypneic HEENT: AT/NC, PERRL, EOMI, oropharynx is moist, pink, no scleral icterus, no conjunctival injection Neck: + JVD, trachea midline Chest: Left lower lobe rhonchi, rales CV: Regular rate and rhythm, normal S1 and S2, no rub, or gallop; +2/6 SM Abdomen: Soft, TTP kim, mildly distended, active bowel sounds; no rebound, rigidity, or guarding Extremities: No cyanosis, clubbing; 2+edema Neuro: moves all extremities Results Laboratory Results: 02/09/17 00:10 02/09/17 00:10 02/08/17 02/08/17 02/08/17 05:10 05:32 05:32 WBC 21.2 H D RBC 3.37 L Hgb 10.7 L Hct 32.5 L MCV 96 MCH 31.8 MCHC 33.0 RDW 16.3 H Plt Count 230 Seg Neutrophils % Not Reportable Lymphocytes % Not Reportable Monocytes % Not Reportable Eosinophils % Not Reportable Basophils % Not Reportable Absolute Neutrophils Not Reportable Absolute Lymphocytes Not Reportable Absolute Monocytes Not Reportable Absolute Eosinophils Not Reportable Absolute Basophils Not Reportable Carbonic Acid HCO3/H2CO3 Ratio ABG pH ABG pCO2 ABG pO2 ABG HCO3 ABG O2 Saturation ABG Base Excess FiO2 Sodium 137.8 Potassium 4.4 Chloride 106 Carbon Dioxide 16 L Anion Gap 16 BUN 41 H Creatinine 3.61 H Est GFR ( Amer) 15 L Est GFR (Non-Af Amer) 12 L Glucose 105 Lactic Acid Calcium 8.4 Magnesium 1.4 L Total Bilirubin AST ALT Alkaline Phosphatase Total Protein Albumin TSH Urine Color Urine Appearance Urine pH Ur Specific [place] Urine Protein Urine Glucose (UA) Urine Ketones Urine Blood Urine Nitrite Ur Leukocyte Esterase Stool Occult Blood Cancelled Blood Type Antibody Screen 02/08/17 02/08/17 02/08/17 05:42 06:40 06:50 WBC RBC Hgb Hct MCV MCH MCHC RDW Plt Count Seg Neutrophils % Lymphocytes % Monocytes % Eosinophils % Basophils % Absolute Neutrophils Absolute Lymphocytes Absolute Monocytes Absolute Eosinophils Absolute Basophils Carbonic Acid 0.98 L HCO3/H2CO3 Ratio 16:1 ABG pH 7.31 L ABG pCO2 32.5 L ABG pO2 78.7 L ABG HCO3 15.9 L ABG O2 Saturation 94.7 ABG Base Excess -9.4 FiO2 2L Sodium Potassium Chloride Carbon Dioxide Anion Gap BUN Creatinine Est GFR ( Amer) Est GFR (Non-Af Amer) Glucose Lactic Acid Calcium Magnesium Total Bilirubin AST ALT Alkaline Phosphatase Total Protein Albumin TSH Urine Color YELLOW Urine Appearance CLOUDY Urine pH 6.0 Ur Specific [place] 1.023 Urine Protein 100 H Urine Glucose (UA) NEGATIVE Urine Ketones 25 H Urine Blood NEGATIVE Urine Nitrite NEGATIVE Ur Leukocyte Esterase TRACE H Stool Occult Blood Blood Type O POSITIVE Antibody Screen NEGATIVE 02/08/17 02/08/17 02/08/17 08:03 08:03 13:12 WBC RBC Hgb Hct MCV MCH MCHC RDW Plt Count Seg Neutrophils % Lymphocytes % Monocytes % Eosinophils % Basophils % Absolute Neutrophils Absolute Lymphocytes Absolute Monocytes Absolute Eosinophils Absolute Basophils Carbonic Acid HCO3/H2CO3 Ratio ABG pH ABG pCO2 ABG pO2 ABG HCO3 ABG O2 Saturation ABG Base Excess FiO2 Sodium Potassium Chloride Carbon Dioxide Anion Gap BUN Creatinine Est GFR ( Amer) Est GFR (Non-Af Amer) Glucose Lactic Acid 2.0 Calcium Magnesium Total Bilirubin AST ALT Alkaline Phosphatase Total Protein Albumin TSH 3.51 Urine Color Urine Appearance Urine pH Ur Specific [place] Urine Protein Urine Glucose (UA) Urine Ketones Urine Blood Urine Nitrite Ur Leukocyte Esterase Stool Occult Blood Blood Type O POSITIVE Antibody Screen NEGATIVE 02/08/17 02/08/17 02/08/17 16:45 16:45 16:45 WBC 15.8 H RBC 3.15 L Hgb 10.0 L Hct 30.1 L MCV 96 MCH 31.8 MCHC 33.3 RDW 16.4 H Plt Count 286 Seg Neutrophils % 82.0 H Lymphocytes % 7.6 L Monocytes % 9.9 Eosinophils % 0.3 Basophils % 0.2 Absolute Neutrophils 12.9 H Absolute Lymphocytes 1.2 Absolute Monocytes 1.6 H Absolute Eosinophils 0.1 Absolute Basophils 0.0 Carbonic Acid HCO3/H2CO3 Ratio ABG pH ABG pCO2 ABG pO2 ABG HCO3 ABG O2 Saturation ABG Base Excess FiO2 Sodium 137.5 Potassium 4.6 Chloride 106 Carbon Dioxide 15 L Anion Gap 17 BUN 43 H Creatinine 3.90 H Est GFR ( Amer) 14 L Est GFR (Non-Af Amer) 11 L Glucose 114 H Lactic Acid Calcium 8.0 L Magnesium 1.9 Total Bilirubin AST ALT Alkaline Phosphatase Total Protein Albumin TSH Urine Color Urine Appearance Urine pH Ur Specific [place] Urine Protein Urine Glucose (UA) Urine Ketones Urine Blood Urine Nitrite Ur Leukocyte Esterase Stool Occult Blood POSITIVE Blood Type Antibody Screen 02/08/17 02/08/17 02/08/17 19:55 20:15 20:15 WBC 12.5 H RBC 2.90 L Hgb 9.0 L Hct 27.6 L MCV 95 MCH 31.0 MCHC 32.6 RDW 16.2 H Plt Count 243 Seg Neutrophils % 83.3 H Lymphocytes % 6.8 L Monocytes % 9.5 Eosinophils % 0.2 Basophils % 0.2 Absolute Neutrophils 10.4 H Absolute Lymphocytes 0.8 Absolute Monocytes 1.2 Absolute Eosinophils 0.0 Absolute Basophils 0.0 Carbonic Acid 1.11 HCO3/H2CO3 Ratio 14:1 ABG pH 7.24 L ABG pCO2 36.9 ABG pO2 66.5 L ABG HCO3 15.6 L ABG O2 Saturation 90.1 L ABG Base Excess -10.9 FiO2 2L Sodium 136.8 L Potassium 4.2 Chloride 105 Carbon Dioxide 18 L Anion Gap 14 BUN 43 H Creatinine 3.62 H Est GFR ( Amer) 15 L Est GFR (Non-Af Amer) 12 L Glucose 133 H Lactic Acid Calcium 7.7 L Magnesium Total Bilirubin 0.6 AST 37 H ALT 32 Alkaline Phosphatase 196 H Total Protein 5.2 L Albumin 2.7 L TSH Urine Color Urine Appearance Urine pH Ur Specific [place] Urine Protein Urine Glucose (UA) Urine Ketones Urine Blood Urine Nitrite Ur Leukocyte Esterase Stool Occult Blood Blood Type Antibody Screen 02/09/17 02/09/17 02/09/17 00:10 00:10 00:10 WBC Cancelled 12.3 H RBC Cancelled 2.67 L Hgb Cancelled 8.7 L Hct Cancelled 25.4 L MCV Cancelled 95 MCH Cancelled 32.7 MCHC Cancelled 34.4 RDW Cancelled 15.7 H Plt Count Cancelled 242 Seg Neutrophils % 79.5 H Lymphocytes % 8.8 L Monocytes % 11.1 Eosinophils % 0.4 Basophils % 0.2 Absolute Neutrophils 9.7 H Absolute Lymphocytes 1.1 Absolute Monocytes 1.4 Absolute Eosinophils 0.1 Absolute Basophils 0.0 Carbonic Acid HCO3/H2CO3 Ratio ABG pH ABG pCO2 ABG pO2 ABG HCO3 ABG O2 Saturation ABG Base Excess FiO2 Sodium 135.7 L Potassium 4.1 Chloride 105 Carbon Dioxide 18 L Anion Gap 13 BUN 41 H Creatinine 3.53 H Est GFR ( Amer) 15 L Est GFR (Non-Af Amer) 13 L Glucose 117 H Lactic Acid Calcium 7.6 L Magnesium Total Bilirubin AST ALT Alkaline Phosphatase Total Protein Albumin TSH Urine Color Urine Appearance Urine pH Ur Specific [place] Urine Protein Urine Glucose (UA) Urine Ketones Urine Blood Urine Nitrite Ur Leukocyte Esterase Stool Occult Blood Blood Type Antibody Screen 02/08/17 02/08/17 02/08/17 08:03 16:45 20:15 Troponin I 0.020 0.020 0.020 Impressions: Knee X-Ray 02/05/17 09:50 IMPRESSION: Total knee arthroplasty. Abdomen/Pelvis CT 02/08/17 00:00 IMPRESSION: 1. Stable pneumatocoele right lower lobe. 2. Cannot exclude minimal infiltrate in the left lower lobe posteriorly. 3. The stomach is somewhat distended. 4. There is minimal free fluid in the pelvis. 5. Osseous findings as described. Chest X-Ray 02/08/17 00:00 IMPRESSION: Right jugular central line tip superior vena cava. No pneumothorax. Bibasilar airspace disease likely atelectasis. Pneumonia could not entirely be excluded Renal Ultrasound 02/08/17 00:00 IMPRESSION: Somewhat limited study as noted above. No significant renal abnormalities were identified. The bladder is not well evaluated due to its non distended state KUB X-Ray 02/08/17 16:42 IMPRESSION: The NG tube appears to be in the stomach. Catheter placement as described. Plan Time Spent: Greater than 30 Minutes
[2017-02-09] MEDS: PIPERACILLIN SODIUM/TAZOBACTAM 3.375 GM in NORMAL SALINE 100 ML IV SCH (04:09)
[2017-02-09] MEDS ORDERED: LANSOPRAZOLE 30 MG TAB.RAP.DR NG SCH (06:00)
--- NOTE | 2017-02-09 06:22 | PDOC PROGRESS REPORT ---
Subjective Progress Note for:: 02/09/17 Reason For Visit: M17.12 UNILATERAL PRIMARY OSTEOARTHRITIS, LEFT KNE Physical Exam Vital Signs: Temp Pulse Resp BP Pulse Ox 37.9 C 110 H 20 105/79 99 02/09/17 01:38 02/09/17 02:00 02/09/17 06:00 02/09/17 06:00 02/09/17 06:00 Intake & Output 02/07/17 02/08/17 02/09/17 06:59 06:59 06:59 Intake Total 1570 4735 8469 Output Total 200 0 2410 Balance 1370 4735 6059 Physical Exam: Patient lying in the intensive care unit accompanied by her daughter. She is somewhat sedated. General appearance: PRESENT: no acute distress Head exam: PRESENT: normocephalic Respiratory exam: PRESENT: unlabored Cardiovascular exam: PRESENT: RRR Pulses: PRESENT: +1 pedal pulses bilateral Vascular exam: PRESENT: normal capillary refill GI/Abdominal exam: PRESENT: soft Rectal exam: PRESENT: deferred Extremities exam: PRESENT: other - Left knee dressing change this morning. Wound is well approximated. There is no erythema or induration. There is scant serous drainage from the inferior aspect of the wound. Skin exam: PRESENT: dry, intact, warm. ABSENT: cyanosis, rash Results Laboratory Results: 02/09/17 00:10 02/09/17 00:10 02/08/17 02/08/17 02/08/17 05:10 05:32 05:42 WBC 21.2 H D RBC 3.37 L Hgb 10.7 L Hct 32.5 L MCV 96 MCH 31.8 MCHC 33.0 RDW 16.3 H Plt Count 230 Seg Neutrophils % Not Reportable Lymphocytes % Not Reportable Monocytes % Not Reportable Eosinophils % Not Reportable Basophils % Not Reportable Absolute Neutrophils Not Reportable Absolute Lymphocytes Not Reportable Absolute Monocytes Not Reportable Absolute Eosinophils Not Reportable Absolute Basophils Not Reportable Carbonic Acid HCO3/H2CO3 Ratio ABG pH ABG pCO2 ABG pO2 ABG HCO3 ABG O2 Saturation ABG Base Excess FiO2 Sodium Potassium Chloride Carbon Dioxide Anion Gap BUN Creatinine Est GFR ( Amer) Est GFR (Non-Af Amer) Glucose Lactic Acid Calcium Magnesium Total Bilirubin AST ALT Alkaline Phosphatase Total Protein Albumin TSH Urine Color Urine Appearance Urine pH Ur Specific [place] Urine Protein Urine Glucose (UA) Urine Ketones Urine Blood Urine Nitrite Ur Leukocyte Esterase Stool Occult Blood Cancelled Blood Type O POSITIVE Antibody Screen NEGATIVE 02/08/17 02/08/17 02/08/17 06:40 06:50 08:03 WBC RBC Hgb Hct MCV MCH MCHC RDW Plt Count Seg Neutrophils % Lymphocytes % Monocytes % Eosinophils % Basophils % Absolute Neutrophils Absolute Lymphocytes Absolute Monocytes Absolute Eosinophils Absolute Basophils Carbonic Acid 0.98 L HCO3/H2CO3 Ratio 16:1 ABG pH 7.31 L ABG pCO2 32.5 L ABG pO2 78.7 L ABG HCO3 15.9 L ABG O2 Saturation 94.7 ABG Base Excess -9.4 FiO2 2L Sodium Potassium Chloride Carbon Dioxide Anion Gap BUN Creatinine Est GFR ( Amer) Est GFR (Non-Af Amer) Glucose Lactic Acid Calcium Magnesium Total Bilirubin AST ALT Alkaline Phosphatase Total Protein Albumin TSH 3.51 Urine Color YELLOW Urine Appearance CLOUDY Urine pH 6.0 Ur Specific [place] 1.023 Urine Protein 100 H Urine Glucose (UA) NEGATIVE Urine Ketones 25 H Urine Blood NEGATIVE Urine Nitrite NEGATIVE Ur Leukocyte Esterase TRACE H Stool Occult Blood Blood Type Antibody Screen 02/08/17 02/08/17 02/08/17 08:03 13:12 16:45 WBC RBC Hgb Hct MCV MCH MCHC RDW Plt Count Seg Neutrophils % Lymphocytes % Monocytes % Eosinophils % Basophils % Absolute Neutrophils Absolute Lymphocytes Absolute Monocytes Absolute Eosinophils Absolute Basophils Carbonic Acid HCO3/H2CO3 Ratio ABG pH ABG pCO2 ABG pO2 ABG HCO3 ABG O2 Saturation ABG Base Excess FiO2 Sodium 137.5 Potassium 4.6 Chloride 106 Carbon Dioxide 15 L Anion Gap 17 BUN 43 H Creatinine 3.90 H Est GFR ( Amer) 14 L Est GFR (Non-Af Amer) 11 L Glucose 114 H Lactic Acid 2.0 Calcium 8.0 L Magnesium 1.9 Total Bilirubin AST ALT Alkaline Phosphatase Total Protein Albumin TSH Urine Color Urine Appearance Urine pH Ur Specific [place] Urine Protein Urine Glucose (UA) Urine Ketones Urine Blood Urine Nitrite Ur Leukocyte Esterase Stool Occult Blood Blood Type O POSITIVE Antibody Screen NEGATIVE 02/08/17 02/08/17 02/08/17 16:45 16:45 19:55 WBC 15.8 H RBC 3.15 L Hgb 10.0 L Hct 30.1 L MCV 96 MCH 31.8 MCHC 33.3 RDW 16.4 H Plt Count 286 Seg Neutrophils % 82.0 H Lymphocytes % 7.6 L Monocytes % 9.9 Eosinophils % 0.3 Basophils % 0.2 Absolute Neutrophils 12.9 H Absolute Lymphocytes 1.2 Absolute Monocytes 1.6 H Absolute Eosinophils 0.1 Absolute Basophils 0.0 Carbonic Acid 1.11 HCO3/H2CO3 Ratio 14:1 ABG pH 7.24 L ABG pCO2 36.9 ABG pO2 66.5 L ABG HCO3 15.6 L ABG O2 Saturation 90.1 L ABG Base Excess -10.9 FiO2 2L Sodium Potassium Chloride Carbon Dioxide Anion Gap BUN Creatinine Est GFR ( Amer) Est GFR (Non-Af Amer) Glucose Lactic Acid Calcium Magnesium Total Bilirubin AST ALT Alkaline Phosphatase Total Protein Albumin TSH Urine Color Urine Appearance Urine pH Ur Specific [place] Urine Protein Urine Glucose (UA) Urine Ketones Urine Blood Urine Nitrite Ur Leukocyte Esterase Stool Occult Blood POSITIVE Blood Type Antibody Screen 02/08/17 02/08/17 02/09/17 20:15 20:15 00:10 WBC 12.5 H RBC 2.90 L Hgb 9.0 L Hct 27.6 L MCV 95 MCH 31.0 MCHC 32.6 RDW 16.2 H Plt Count 243 Seg Neutrophils % 83.3 H Lymphocytes % 6.8 L Monocytes % 9.5 Eosinophils % 0.2 Basophils % 0.2 Absolute Neutrophils 10.4 H Absolute Lymphocytes 0.8 Absolute Monocytes 1.2 Absolute Eosinophils 0.0 Absolute Basophils 0.0 Carbonic Acid HCO3/H2CO3 Ratio ABG pH ABG pCO2 ABG pO2 ABG HCO3 ABG O2 Saturation ABG Base Excess FiO2 Sodium 136.8 L 135.7 L Potassium 4.2 4.1 Chloride 105 105 Carbon Dioxide 18 L 18 L Anion Gap 14 13 BUN 43 H 41 H Creatinine 3.62 H 3.53 H Est GFR ( Amer) 15 L 15 L Est GFR (Non-Af Amer) 12 L 13 L Glucose 133 H 117 H Lactic Acid Calcium 7.7 L 7.6 L Magnesium Total Bilirubin 0.6 AST 37 H ALT 32 Alkaline Phosphatase 196 H Total Protein 5.2 L Albumin 2.7 L TSH Urine Color Urine Appearance Urine pH Ur Specific [place] Urine Protein Urine Glucose (UA) Urine Ketones Urine Blood Urine Nitrite Ur Leukocyte Esterase Stool Occult Blood Blood Type Antibody Screen 02/09/17 02/09/17 00:10 00:10 WBC Cancelled 12.3 H RBC Cancelled 2.67 L Hgb Cancelled 8.7 L Hct Cancelled 25.4 L MCV Cancelled 95 MCH Cancelled 32.7 MCHC Cancelled 34.4 RDW Cancelled 15.7 H Plt Count Cancelled 242 Seg Neutrophils % 79.5 H Lymphocytes % 8.8 L Monocytes % 11.1 Eosinophils % 0.4 Basophils % 0.2 Absolute Neutrophils 9.7 H Absolute Lymphocytes 1.1 Absolute Monocytes 1.4 Absolute Eosinophils 0.1 Absolute Basophils 0.0 Carbonic Acid HCO3/H2CO3 Ratio ABG pH ABG pCO2 ABG pO2 ABG HCO3 ABG O2 Saturation ABG Base Excess FiO2 Sodium Potassium Chloride Carbon Dioxide Anion Gap BUN Creatinine Est GFR ( Amer) Est GFR (Non-Af Amer) Glucose Lactic Acid Calcium Magnesium Total Bilirubin AST ALT Alkaline Phosphatase Total Protein Albumin TSH Urine Color Urine Appearance Urine pH Ur Specific [place] Urine Protein Urine Glucose (UA) Urine Ketones Urine Blood Urine Nitrite Ur Leukocyte Esterase Stool Occult Blood Blood Type Antibody Screen 02/08/17 02/08/17 02/08/17 08:03 16:45 20:15 Troponin I 0.020 0.020 0.020 Impressions: Knee X-Ray 02/05/17 09:50 IMPRESSION: Total knee arthroplasty. Abdomen/Pelvis CT 02/08/17 00:00 IMPRESSION: 1. Stable pneumatocoele right lower lobe. 2. Cannot exclude minimal infiltrate in the left lower lobe posteriorly. 3. The stomach is somewhat distended. 4. There is minimal free fluid in the pelvis. 5. Osseous findings as described. Chest X-Ray 02/08/17 00:00 IMPRESSION: Right jugular central line tip superior vena cava. No pneumothorax. Bibasilar airspace disease likely atelectasis. Pneumonia could not entirely be excluded Renal Ultrasound 02/08/17 00:00 IMPRESSION: Somewhat limited study as noted above. No significant renal abnormalities were identified. The bladder is not well evaluated due to its non distended state KUB X-Ray 02/08/17 16:42 IMPRESSION: The NG tube appears to be in the stomach. Catheter placement as described. Status: Imported from PACS Assessment & Plan - Diagnosis (1) Arthritis of left knee Is this a current diagnosis for this admission?: Yes Plan: 72-year-old white female now postop day 4 from left knee arthroplasty. The patient initially did well and then on postop day 2-1/2 for 3 when she developed episodes of hypertension, diarrhea, and emesis. The patient was initially resuscitated with fluids and then because of leukocytosis, oliguria, renal failure, and sustained hypotension she was transferred to the intensive care unit and treated with vasopressors including los and levophed. Because of concerns of an absence of gastrointestinal specialist backup and records supervisor backup a decision was made by the consulting hospitalist service that the patient will be better served at a tertiary care center and the patient is now being transferred to [facility]. At this point the patient's white count is decreasing. She has an elevation in her fibrin split products. Her creatinine has decreased from 3.93 to 3.53 and she has begun to make significant quantities of urine. Occult stool was positive for blood. In retrospect I suspect her septic type episode may be related to an upper GI perforated ulcer and her overall clinical course seems to be improving. The patient will be transferred to [facility] for acute care. Pending resolution of her acute care the plan is that she will be going to a senior care facility at [facility]. I would be glad to resume care of the patient at that point. - Time Time Spent with patient: 15-24 minutes Anticipated discharge: [facility] Within: when bed available
[2017-02-09] MEDS: DEXTROSE 5%-WATER 250 ML with PHENYLEPHRINE HCL 40 MG IV PRN ×2 (07:00)
[2017-02-09] MEDS: DEXTROSE 5%-WATER 250 ML with NOREPINEPHRINE BITARTRATE 4 MG IV PRN ×2 (07:01)
[2017-02-09 07:10] LABS: ABSOLUTE BASOPHILS # (AUTO) 0.1 10^3/uL (0.0-0.2); ABSOLUTE EOSINOPHILS # (AUTO) 0.1 10^3/uL (0.0-0.6); ABSOLUTE LYMPHOCYTES (AUTO) 1.1 10^3/uL (0.5-4.7); ABSOLUTE MONOCYTES (AUTO) 1.4 10^3/uL (0.1-1.4); ABSOLUTE NEUT (AUTO) 9.9 10^3/uL (1.7-8.2); BASOPHILS % (AUTO) 0.7 % (0-2); EOSINOPHILS % (AUTO) 1.1 % (0-6); HEMOGLOBIN 8.8 g/dL (12.0-15.5); HGB HCT DIFFERENCE 0.4; LYMPHOCYTES % (AUTO) 8.9 % (13-45); MEAN CORPUSCULAR HEMOGLOBIN 32.3 pg (27.0-33.4); MEAN CORPUSCULAR HGB CONC 33.9 g/dL (32.0-36.0); MEAN CORPUSCULAR VOLUME 95 fl (80-97); MONOCYTES % (AUTO) 11.3 % (3-13); RED BLOOD COUNT 2.72 10^6/uL (3.72-5.28); RED CELL DISTRIBUTION WIDTH 16.1 % (11.5-14.0); WHITE BLOOD COUNT 12.7 10^3/uL (4.0-10.5)
[2017-02-09 07:19] LABS: ALANINE AMINOTRANSFERASE 30 U/L (9-52); ALBUMIN 2.6 g/dL (3.5-5.0); ALKALINE PHOSPHATASE 174 U/L (38-126); ANION GAP 13 (5-19); ASPARTATE AMINO TRANSFERASE 42 U/L (14-36); BILIRUBIN,DIRECT 0.5 mg/dL (0.0-0.4); BILIRUBIN,TOTAL 0.5 mg/dL (0.2-1.3); BLOOD UREA NITROGEN 38 mg/dL (7-20); CALCIUM 7.6 mg/dL (8.4-10.2); CARBON DIOXIDE 17 mmol/L (22-30); CHLORIDE 108 mmol/L (98-107); CREATININE RESULT 3.22 mg/dL (0.52-1.25); GLUCOSE 125 mg/dL (75-110); MAGNESIUM 1.6 mg/dL (1.6-2.3); PHOSPHORUS 4.6 mg/dL (2.5-4.5); SODIUM 138.2 mmol/L (137-145)
[2017-02-09 07:46] VITALS: BP 110/90
[2017-02-09] MEDS ORDERED: AMITRIPTYLINE HCL 10 MG TABLET NG SCH (10:00)
[2017-02-09] MEDS ORDERED: PANTOPRAZOLE SODIUM 40 MG VIAL IV SCH (10:00)
== END 2017-02-09 09:07 | disposition short-term general hospital (02) | DRG 469 ==
LOC: INOR 06:30 → 4S 10:58 → ICU 02-08 07:09
PROVIDERS: ADMIT Orthopaedic Surgery; ATTEND Orthopaedic Surgery
PROC: 0SRD0J9 Replacement of Left Knee Joint with Synthetic Substitute, Cemented, Open Approach (ICD-10-PCS; principal; 2017-02-05 08:45)
PROC: 02HV33Z Insertion of Infusion Device into Superior Vena Cava, Percutaneous Approach (ICD-10-PCS; 2017-02-08)
PROC: 03HB33Z Insertion of Infusion Device into Right Radial Artery, Percutaneous Approach (ICD-10-PCS; 2017-02-08)
PROC: 0D9670Z Drainage of Stomach with Drainage Device, Via Natural or Artificial Opening (ICD-10-PCS; 2017-02-08)
DX: M17.12 Unilateral primary osteoarthritis, left knee (principal); A41.9 Sepsis, unspecified organism; R65.21 Severe sepsis with septic shock; J18.9 Pneumonia, unspecified organism; G93.40 Encephalopathy, unspecified; K92.2 Gastrointestinal hemorrhage, unspecified; N17.9 Acute kidney failure, unspecified; N18.4 Chronic kidney disease, stage 4 (severe); Z68.42 Body mass index [BMI] 45.0-49.9, adult; R19.7 Diarrhea, unspecified; I12.9 Hypertensive chronic kidney disease with stage 1 through stage 4 chronic kidney disease, or unspecified chronic kidney disease; E11.22 Type 2 diabetes mellitus with diabetic chronic kidney disease; E78.5 Hyperlipidemia, unspecified; E66.9 Obesity, unspecified; F41.9 Anxiety disorder, unspecified; F32.9 Major depressive disorder, single episode, unspecified; M79.7 Fibromyalgia; Z79.84 Long term (current) use of oral hypoglycemic drugs; Z79.899 Other long term (current) drug therapy; Z87.891 Personal history of nicotine dependence
CPT/HCPCS: 01402; 36415; 71010; 74000; 74176; 76770; 80048; 80053; 81001; 82272; 82570; 82803; 82947; 83605; 83735; 84100; 84132; 84300; 84443; 84484; 85025; 85027; 85362; 85384; 85610; 85730; 86850; 86900; 86901; 87040; 87086; 87493; 88305; 88311; 89190; 93005; 93010; 93306; 94799; C1751; C2625; C9290; G8978-GP; G8979-GP; G8987-GO; G8988-GO; J0131; J0690; J1100; J1741; J2250; J2270; J2310; J2370; J2405; J2543; J2704; J3010; J3370; J3475; J3490; J7030; J7050; J7060; S0164

== ENCOUNTER → 2017-03-08 | Outpatient (CLI) | payer MEDICARE, OTHER ==
[2017-03-08 13:52] LABS: ABSOLUTE EOSINOPHILS # (AUTO) 0.2 10^3/uL (0.0-0.6); ABSOLUTE LYMPHOCYTES (AUTO) 1.2 10^3/uL (0.5-4.7); ABSOLUTE MONOCYTES (AUTO) 0.6 10^3/uL (0.1-1.4); ABSOLUTE NEUT (AUTO) 2.1 10^3/uL (1.7-8.2); BASOPHILS % (AUTO) 1.1 % (0-2); EOSINOPHILS % (AUTO) 4.5 % (0-6); HEMATOCRIT 30.9 % (36.0-47.0); HEMOGLOBIN 10.3 g/dL (12.0-15.5); LYMPHOCYTES % (AUTO) 28.8 % (13-45); MEAN CORPUSCULAR HEMOGLOBIN 31.5 pg (27.0-33.4); MEAN CORPUSCULAR HGB CONC 33.2 g/dL (32.0-36.0); MEAN CORPUSCULAR VOLUME 95 fl (80-97); PLATELET COUNT 277 10^3/uL (150-450); RED BLOOD COUNT 3.26 10^6/uL (3.72-5.28); RED CELL DISTRIBUTION WIDTH 16.8 % (11.5-14.0); SEGMENTED NEUTROPHILS % (AUTO) 51.6 % (42-78); TOTAL CELLS COUNTED % (AUTO) 100 %; WHITE BLOOD COUNT 4.1 10^3/uL (4.0-10.5)
[2017-03-08 14:05] LABS: ANION GAP 12 (5-19); BLOOD UREA NITROGEN 15 mg/dL (7-20); CALCIUM 9.5 mg/dL (8.4-10.2); CARBON DIOXIDE 25 mmol/L (22-30); CHLORIDE 103 mmol/L (98-107); GLUCOSE 105 mg/dL (75-110); POTASSIUM 4.9 mmol/L (3.6-5.0); SODIUM 140.4 mmol/L (137-145)
[2017-03-09 09:21] LABS: APPEARANCE,URINE SLIGHTLY-CLOUDY; BILIRUBIN,URINE NEGATIVE (NEGATIVE); COLOR,URINE YELLOW; GLUCOSE, URINE NEGATIVE (NEGATIVE); KETONES,URINE NEGATIVE (NEGATIVE); LEUKOCYTE ESTERASE,URINE MODERATE (NEGATIVE); NITRITE,URINE NEGATIVE (NEGATIVE); PROTEIN,URINE NEGATIVE (NEGATIVE); URINE SPECIFIC GRAVITY 1.011; UROBILINOGEN,URINE NEGATIVE mg/dL (<2.0)
--- NOTE | 2017-03-11 12:50 | EKG REPORT ---
SEVERITY:- NORMAL ECG - SINUS RHYTHM : Confirmed by: Syl Trinh MD 11-Mar-2017 12:48:12
== END ==
LOC: OD 11:40
PROVIDERS: ATTEND Orthopaedic Surgery
DX: Z01.818 Encounter for other preprocedural examination (principal); E11.9 Type 2 diabetes mellitus without complications
CPT/HCPCS: 36415; 80048; 81001; 83036; 85025; 93005; 93010

== ENCOUNTER 2017-03-14 05:25 | Day surgery (SDC) | payer MEDICARE, OTHER ==
--- NOTE | 2017-03-08 13:40 | RADIOLOGY REPORT (SQ) ---
EXAM DESCRIPTION: CHEST PA/LATERAL COMPLETED DATE/TIME: 03/08/2017 1:11 pm REASON FOR STUDY: PRE OP COMPARISON: 02/08/2017 EXAM PARAMETERS: NUMBER OF VIEWS: two views TECHNIQUE: Digital Frontal and Lateral radiographic views of the chest acquired. RADIATION DOSE: NA LIMITATIONS: none FINDINGS: LUNGS AND PLEURA: No opacities, masses or pneumothorax. No pleural effusion. Large emphys ematous bullae right lower lobe. MEDIASTINUM AND HILAR STRUCTURES: No masses or contour abnormalities. HEART AND VASCULAR STRUCTURES: Heart normal size. No evidence for failure. BONES: No acute findings. HARDWARE: None in the chest. OTHER: No other significant finding. IMPRESSION: Pulmonary emphysema. No acute abnormality. TECHNICAL DOCUMENTATION: JOB ID: [id number] [employer]- All Rights Reserved
[~2017-03-14 05:25] MED LIST changes: -BUPIVACAINE INJ/PF LIPOSOME/PF 266 MG/20 ML SDV IJ PRN; +CEFAZOLIN 2 GM/D5W RTU 2 GM/50 ML RTUPB IV PRN; -CEFAZOLIN INJ 1 GM VIAL IV PRN; -IBUPROFEN 800 MG/NS 250 ML IV PRN; -LACTATED RINGERS 1000 ML IV PRN; -LANSOPRAZOLE 15 MG TAB.RAP.DR PO PRN; -LIDOCAINE 0.5% INJ-PF (5 MG/ML) 50 ML SDV SUBCUT PRN; -OXYCODONE HCL SR 10 MG TABLET PO PRN; -THROMBIN (BOVINE) 5000 UNIT EPITAXIS KIT ONE; -THROMBIN (BOVINE) TOPICAL 20000 UNIT VIAL ONE; -VANCOMYCIN HCL 1,000 MG in DEXTROSE 5%-WATER 250 ML IV PRN
[2017-03-14 06:27] LABS: INTERNATIONAL RATION (INR) 0.96; PROTHROMBIN TIME 13.5 SEC (11.4-15.4)
[2017-03-14] MEDS ORDERED: FENTANYL CITRATE INJ/PF 100 MCG/2 ML AMPUL ONE (07:05)
[2017-03-14] MEDS ORDERED: HYDROMORPHONE HCL INJ/PF 2 MG/ML AMPULE ONE (07:05)
[2017-03-14] MEDS ORDERED: PROPOFOL INJ 200 MG/20 ML VIAL IV ONE (07:05)
[2017-03-14] MEDS ORDERED: MIDAZOLAM 2 MG/2 ML INJ ONE (07:05)
[2017-03-14] MEDS ORDERED: MEPERIDINE HCL/PF INJ 25 MG/1 ML DISP.SYRIN IV PRN (07:40)
[2017-03-14] MEDS ORDERED: OXYCODONE-ACETAMINOPHEN 5-325 MG TABLET PO PRN ×4 (07:40→13:58)
[2017-03-14] MEDS ORDERED: MORPHINE SULFATE 10 MG/ML INJ IV PRN ×4 (07:40→14:07)
[2017-03-14] MEDS ORDERED: FENTANYL CITRATE INJ/PF 100 MCG/2 ML AMPUL IV PRN ×3 (07:40)
[2017-03-14] MEDS ORDERED: DIPHENHYDRAMINE HCL 50 MG/ML VIAL IV PRN (07:40)
[2017-03-14] MEDS ORDERED: PROMETHAZINE HCL INJ 25 MG/1 ML VIAL IV PRN ×2 (07:40)
[2017-03-14] MEDS ORDERED: BUPIVACAINE HCL 0.25% /EPINEPHRINE INJ/PF 30 ML SDV ONE (08:04)
--- NOTE | 2017-03-14 08:13 | Operative Report ---
Operative Report DATE OF SURGERY: 03/14/17 PREOPERATIVE DIAGNOSIS: Left periprosthetic patella fracture OPERATION: Open reduction internal fixation of left patella fracture and associated retinacular SURGEON: SALINA PAGE REPORTS ANALYST: HUY PATTON ANESTHESIA: Spinal TISSUE REMOVED OR ALTERED: Cultures to microbiology ESTIMATED BLOOD LOSS: 25 PROCEDURE: With the patient supine on the operating table the left lower extremities prepped and draped in sterile fashion. The limb was elevated for exsanguination tourniquet inflated to 350 torr. A standard midline approach through the patella is taken in line with the previous surgical approach. Upon entering the retinacular layer a culture was taken of the knee fluid. The retinacular layers developed and there is a disruption beginning mid patella laterally and extending across the patella transversely and then proximally and medially. The patella was reapproximated using large tenaculum. Its reduction is assessed fluoroscopically and felt to be adequate. It is held in place using a [id number] #5 fire wire. The retinaculum both medial and laterally is then repaired using a #2 FiberWire. Lastly a circumferential 5 fire wire is made around the patella itself. Again his reduction is checked thorascopic lead felt to be near anatomic. This point the tourniquet is deflated. Hemostasis obtained with electrocautery. The wound is irrigated with bulb lavage. Is closed using interrupted Vicryl followed by criss. A sterile compressive dressing is applied followed by knee immobilizer and the patient's return to the PACU in satisfactory condition.
[2017-03-14] MEDS ORDERED: RINGERS SOLUTION,LACTATED 1,000 ML IV PRN (08:49)
--- NOTE | 2017-03-14 11:22 | RADIOLOGY REPORT (SQ) ---
EXAM DESCRIPTION: NO CHG FLUORO; KNEE LEFT 2 VIEWS COMPLETED DATE/TIME: 03/14/2017 8:53 am REASON FOR STUDY: ORIF LEFT PATELLA ASSISTED WITH FLUORO IN OR S82.012A DISPLACED OSTEOCHONDRAL FRA CTURE OF LEFT PATELLA, I Z79.01 [facility] (CURRENT) USE OF ANTICOAGULANTS Z79.899 OTHER [facility] ( CURRENT) DRUG THERAPY COMPARISON: 02/05/2017. FLUOROSCOPY TIME: 0.1 minutes 3 images saved to PACS. TECHNIQUE: Intra-operative images acquired during surgical procedure to evaluate progress. NUMBER OF IMAGES: 3 LIMITATIONS: None. FINDINGS: Focussed limited imaging of the left knee reveals grossly intact appropriately articulatin g knee arthroplasty components. IMPRESSION: IMAGE(S) OBTAINED DURING PROCEDURE. COMMENT: Quality ID 145: Final reports for procedures using fluoroscopy that document radiation exp osure indices, or exposure time and number of fluorographic images (if radiation exposure indices are not available) Please consult full operative report of the attending physician for description of the procedure. TECHNICAL DOCUMENTATION: JOB ID: [id number] [employer]- All Rights Reserved
--- NOTE | 2017-03-14 11:22 | RADIOLOGY REPORT (SQ) ---
EXAM DESCRIPTION: NO CHG FLUORO; KNEE LEFT 2 VIEWS COMPLETED DATE/TIME: 03/14/2017 8:53 am REASON FOR STUDY: ORIF LEFT PATELLA ASSISTED WITH FLUORO IN OR S82.012A DISPLACED OSTEOCHONDRAL FRA CTURE OF LEFT PATELLA, I Z79.01 [facility] (CURRENT) USE OF ANTICOAGULANTS Z79.899 OTHER [facility] ( CURRENT) DRUG THERAPY COMPARISON: 02/05/2017. FLUOROSCOPY TIME: 0.1 minutes 3 images saved to PACS. TECHNIQUE: Intra-operative images acquired during surgical procedure to evaluate progress. NUMBER OF IMAGES: 3 LIMITATIONS: None. FINDINGS: Focussed limited imaging of the left knee reveals grossly intact appropriately articulatin g knee arthroplasty components. IMPRESSION: IMAGE(S) OBTAINED DURING PROCEDURE. COMMENT: Quality ID 145: Final reports for procedures using fluoroscopy that document radiation exp osure indices, or exposure time and number of fluorographic images (if radiation exposure indices are not available) Please consult full operative report of the attending physician for description of the procedure. TECHNICAL DOCUMENTATION: JOB ID: [id number] [employer]- All Rights Reserved
[2017-03-14] MEDS: GABAPENTIN 300 MG CAPSULE PO SCH ×2 (14:10→21:09)
[2017-03-14] MEDS: CEFAZOLIN 2 GM/D5W RTU 2 GM/50 ML RTUPB IV SCH ×2 (14:10→21:18)
[2017-03-14] MEDS: MORPHINE SULFATE 10 MG/ML INJ IV PRN ×3 (14:13→22:48)
[2017-03-14] MEDS: OXYCODONE-ACETAMINOPHEN 5-325 MG TABLET PO PRN ×2 (15:34→21:09)
[2017-03-14] MEDS ORDERED: INFLUENZA ADLT QUAD (36MOS+) 2017-18 VAC 0.5 ML SYR IM PRN (20:04)
[2017-03-14] MEDS: APIXABAN 5 MG TABLET PO SCH (20:21)
[2017-03-14] MEDS: AMITRIPTYLINE HCL 10 MG TABLET PO SCH (21:09)
[2017-03-14] MEDS: METOPROLOL SUCCINATE 50 MG TAB.SR.24H PO SCH (21:09)
[2017-03-15 05:28] LABS: ABSOLUTE BASOPHILS # (AUTO) 0.1 10^3/uL (0.0-0.2); ABSOLUTE EOSINOPHILS # (AUTO) 0.2 10^3/uL (0.0-0.6); ABSOLUTE LYMPHOCYTES (AUTO) 1.5 10^3/uL (0.5-4.7); ABSOLUTE MONOCYTES (AUTO) 1.1 10^3/uL (0.1-1.4); ABSOLUTE NEUT (AUTO) 5.2 10^3/uL (1.7-8.2); BASOPHILS % (AUTO) 0.8 % (0-2); EOSINOPHILS % (AUTO) 2.2 % (0-6); HEMATOCRIT 29.1 % (36.0-47.0); HEMOGLOBIN 9.9 g/dL (12.0-15.5); LYMPHOCYTES % (AUTO) 18.4 % (13-45); MEAN CORPUSCULAR HEMOGLOBIN 31.8 pg (27.0-33.4); MEAN CORPUSCULAR VOLUME 94 fl (80-97); MONOCYTES % (AUTO) 13.8 % (3-13); PLATELET COUNT 266 10^3/uL (150-450); RED BLOOD COUNT 3.11 10^6/uL (3.72-5.28); RED CELL DISTRIBUTION WIDTH 15.9 % (11.5-14.0); SEGMENTED NEUTROPHILS % (AUTO) 64.8 % (42-78); TOTAL CELLS COUNTED % (AUTO) 100 %; WHITE BLOOD COUNT 8.1 10^3/uL (4.0-10.5)
[2017-03-15 05:46] LABS: ANION GAP 11 (5-19); BLOOD UREA NITROGEN 15 mg/dL (7-20); CALCIUM 9.2 mg/dL (8.4-10.2); CARBON DIOXIDE 23 mmol/L (22-30); CHLORIDE 106 mmol/L (98-107); GLUCOSE 99 mg/dL (75-110); POTASSIUM 4.5 mmol/L (3.6-5.0)
[2017-03-15] MEDS: GABAPENTIN 300 MG CAPSULE PO SCH ×3 (06:08→22:14)
[2017-03-15] MEDS: OXYCODONE-ACETAMINOPHEN 5-325 MG TABLET PO PRN ×2 (06:08→15:23)
--- NOTE | 2017-03-15 08:06 | PDOC PROGRESS REPORT ---
Subjective Progress Note for:: 03/15/17 Subjective:: 72-year-old white female one day status post open reduction internal fixation for left patellar fracture. Patient lying comfortably in hospital bed this morning and has no complaints of pain. Patient states she was comfortable overnight but yet did have to ask for morphine. Reason For Visit: S82.012A DISPLACED OSTEOCHONDRAL FRACTURE OF LEFT Physical Exam Vital Signs: Temp Pulse Resp BP Pulse Ox 37.1 C 80 22 H 146/61 H 92 03/15/17 04:00 03/15/17 04:00 03/15/17 04:00 03/15/17 04:00 03/15/17 04:00 Intake & Output 03/14/17 03/15/17 03/16/17 06:59 06:59 06:59 Intake Total 0 3256 Output Total 300 Balance 0 2956 Weight 140.61 kg General appearance: PRESENT: no acute distress, well-developed, well-nourished Head exam: PRESENT: atraumatic, normocephalic Respiratory exam: PRESENT: unlabored Pulses: PRESENT: normal dorsalis pedis pul, +2 pedal pulses bilateral Vascular exam: PRESENT: normal capillary refill Extremities exam: PRESENT: tenderness Additional comments: Patient lying recumbent in hospital bed with bilateral lower extremities in full extension. Her left lower extremity is in a knee immobilizer brace. This brace is removed and her OpSite compression dressing is clean dry and intact. This dressing is left in place. She is dresser tender to palpation and there is pain elicited with movement of the left lower extremity. She has brisk capillary refill to toes on bilateral lower extremities and there is minimal pedal edema. Her sensory motor functions are intact and her distal neurovascular exam is intact. Musculoskeletal exam: PRESENT: ambulatory Additional comments: Patient make slow progress with physical therapy ambulating a maximum of 4 sidesteps on postoperative day 0. She will continue to work with physical therapy to improve strength range of motion of left lower extremity and work towards further ambulation with knee immobilizer brace in place. Neurological exam: PRESENT: alert, awake, oriented to person, oriented to place , oriented to time, oriented to situation, CN II-XII grossly intact. ABSENT: motor sensory deficit Psychiatric exam: PRESENT: appropriate affect, normal mood. ABSENT: homicidal ideation, suicidal ideation Skin exam: PRESENT: dry, intact, warm. ABSENT: cyanosis, rash Results Laboratory Results: 03/15/17 04:40 03/15/17 04:40 03/15/17 03/15/17 04:40 04:40 WBC 8.1 RBC 3.11 L Hgb 9.9 L Hct 29.1 L MCV 94 MCH 31.8 MCHC 34.0 RDW 15.9 H Plt Count 266 Seg Neutrophils % 64.8 Lymphocytes % 18.4 Monocytes % 13.8 H Eosinophils % 2.2 Basophils % 0.8 Absolute Neutrophils 5.2 Absolute Lymphocytes 1.5 Absolute Monocytes 1.1 Absolute Eosinophils 0.2 Absolute Basophils 0.1 Sodium 140.0 Potassium 4.5 Chloride 106 Carbon Dioxide 23 Anion Gap 11 BUN 15 Creatinine 1.25 Est GFR ( Amer) 51 L Est GFR (Non-Af Amer) 42 L Glucose 99 Calcium 9.2 Impressions: Chest X-Ray 03/08/17 12:36 IMPRESSION: Pulmonary emphysema. No acute abnormality. Fluoroscopy 03/14/17 00:00 IMPRESSION: IMAGE(S) OBTAINED DURING PROCEDURE. Knee X-Ray 03/14/17 00:00 IMPRESSION: IMAGE(S) OBTAINED DURING PROCEDURE. Assessment & Plan - Diagnosis (1) Fracture of left patella Qualifiers: Encounter type: subsequent encounter Fracture type: closed Fracture alignment: displaced Is this a current diagnosis for this admission?: Yes - Plan Summary Plan Summary: 72-year-old white female one day status post open reduction internal fixation for left patella fracture. Patient make slow progress with physical therapy only ambulating for sidesteps. She will continue to work with physical therapy to improve strength and range of motion and work towards independent ambulation on left lower extremity. Her knee immobilizer brace will be left in place throughout her stay at the hospital. Her OpSite compression dressing was clean dry and intact and is left in place this morning.
[2017-03-15] MEDS: METOPROLOL SUCCINATE 50 MG TAB.SR.24H PO SCH ×2 (09:15→23:12)
[2017-03-15] MEDS: MORPHINE SULFATE 10 MG/ML INJ IV PRN ×3 (09:15→23:08)
[2017-03-15] MEDS: LISINOPRIL 10 MG TABLET PO SCH (09:15)
[2017-03-15] MEDS: APIXABAN 5 MG TABLET PO SCH ×2 (09:16→17:54)
[2017-03-15] MEDS: HYDROCHLOROTHIAZIDE 25 MG TABLET PO SCH (09:16)
[2017-03-15] MEDS: LACTOBACILLUS ACIDOPHILUS 250 MG TAB PO SCH (09:16)
[2017-03-15] MEDS: ALLOPURINOL 300 MG TABLET PO SCH (09:16)
[2017-03-15] MEDS: DILTIAZEM HCL 180 MG CAPSULE.CR PO SCH (09:16)
[2017-03-15] MEDS ORDERED: AMLODIPINE BESYLATE 5 MG TABLET PO SCH (10:00)
[2017-03-15] MEDS ORDERED: (PENDING PHARMACY ID) (L.Acidoph,Paracasei, B.Lactis [Probiotic] 1 EACH) PO SCH (10:00)
[2017-03-15] MEDS ORDERED: (PENDING PHARMACY ID) (Lisinopril/Hydrochlorothiazide [Zestoretic 20-25 Mg Tablet] 1 EACH) PO SCH (10:00)
[2017-03-15] MEDS: AMITRIPTYLINE HCL 10 MG TABLET PO SCH (22:14)
[2017-03-16] MEDS: GABAPENTIN 300 MG CAPSULE PO SCH ×3 (05:21→21:23)
[2017-03-16] MEDS: MORPHINE SULFATE 10 MG/ML INJ IV PRN ×3 (07:01→21:23)
--- NOTE | 2017-03-16 07:15 | PDOC PROGRESS REPORT ---
Subjective Progress Note for:: 03/16/17 Subjective:: 72-year-old white female 2 days status post reduction internal fixation for left patellar fracture. Patient lying recumbent in hospital bed comfortable this morning she was awakened when asked multiple questions and with name calling. She reports she was comfortable overnight and completed exercises independently of physical therapy. Reason For Visit: S82.012A DISPLACED OSTEOCHONDRAL FRACTURE OF LEFT Physical Exam Vital Signs: Temp Pulse Resp BP Pulse Ox 36.9 C 84 21 H 130/63 H 98 03/15/17 23:50 03/15/17 23:50 03/15/17 23:50 03/15/17 23:50 03/15/17 23:50 Intake & Output 03/15/17 03/16/17 03/17/17 06:59 06:59 06:59 Intake Total 3256 255 Output Total 300 Balance 2956 255 General appearance: PRESENT: no acute distress, well-developed, well-nourished Head exam: PRESENT: atraumatic, normocephalic Respiratory exam: PRESENT: unlabored Pulses: PRESENT: normal dorsalis pedis pul, +2 pedal pulses bilateral Vascular exam: PRESENT: normal capillary refill Additional comments: Patient's left lower extremity in full extension with patient lying recumbent in hospital bed. Her postoperative compression dressing was removed and OpSite dressing saturated with flank blood. This dressing is changed and new dressing is clean dry and intact. Her knee immobilizer brace was then secured in place on left lower extremity. She has brisk capillary refill to toes on bilateral lower extremities minimal pedal edema. Her sensory motor functions are intact and her distal neurovascular exam is intact. Musculoskeletal exam: PRESENT: ambulatory Additional comments: Patient has made minimal progress with physical therapy as they did not work with patients yesterday. She has however ambulated postoperatively and continues to do independent exercises while laying in hospital bed. She will continue to work with physical therapy throughout her stay in the hospital to improve strength range of motion of left lower extremity. However the knee immobilizer brace will remain in place throughout her sessions with physical therapy. We would like left lower extremity to remain in extension for at least 4 weeks postoperatively to facilitate healing of the patellar fracture. Neurological exam: PRESENT: alert, awake, oriented to person, oriented to place , oriented to time, oriented to situation, CN II-XII grossly intact. ABSENT: motor sensory deficit Psychiatric exam: PRESENT: appropriate affect, normal mood. ABSENT: homicidal ideation, suicidal ideation Skin exam: PRESENT: dry, intact, warm. ABSENT: cyanosis, rash Results Laboratory Results: 03/15/17 04:40 03/15/17 04:40 Impressions: Chest X-Ray 03/08/17 12:36 IMPRESSION: Pulmonary emphysema. No acute abnormality. Fluoroscopy 03/14/17 00:00 IMPRESSION: IMAGE(S) OBTAINED DURING PROCEDURE. Knee X-Ray 03/14/17 00:00 IMPRESSION: IMAGE(S) OBTAINED DURING PROCEDURE. Assessment & Plan - Diagnosis (1) Fracture of left patella Qualifiers: Encounter type: subsequent encounter Fracture type: closed Fracture alignment: displaced Is this a current diagnosis for this admission?: Yes - Plan Summary Plan Summary: 72-year-old white female 2 days status post open reduction internal fixation for left patellar fracture. Patient's compression dressing was removed and OpSite dressing saturated with sreedhar blood. This was changed and new dressing is clean dry and intact. Her knee immobilizer brace was secured. This brace is to be left in place and she is not to complete bending motions with physical therapy throughout her stay in the hospital. She will continue to work with physical therapy however to improve strength and range of motion of left lower extremity and work towards independent ambulation. She will likely be discharged tomorrow with home health nursing and home physical therapy.
[2017-03-16] MEDS: METOPROLOL SUCCINATE 50 MG TAB.SR.24H PO SCH ×2 (10:04→21:23)
[2017-03-16] MEDS: APIXABAN 5 MG TABLET PO SCH ×2 (10:04→18:33)
[2017-03-16] MEDS: LACTOBACILLUS ACIDOPHILUS 250 MG TAB PO SCH (10:04)
[2017-03-16] MEDS: DILTIAZEM HCL 180 MG CAPSULE.CR PO SCH (10:05)
[2017-03-16] MEDS: ALLOPURINOL 300 MG TABLET PO SCH (10:05)
[2017-03-16] MEDS: LISINOPRIL 10 MG TABLET PO SCH (10:05)
[2017-03-16] MEDS: HYDROCHLOROTHIAZIDE 25 MG TABLET PO SCH (10:05)
[2017-03-16] MEDS: AMITRIPTYLINE HCL 10 MG TABLET PO SCH (21:23)
[2017-03-17] MEDS: GABAPENTIN 300 MG CAPSULE PO SCH ×2 (05:35→13:26)
[2017-03-17] MEDS: OXYCODONE-ACETAMINOPHEN 5-325 MG TABLET PO PRN ×2 (05:35→13:38)
--- NOTE | 2017-03-17 08:07 | PDOC TRANSFER SUMMARY ---
General - Admit/Disc Date/PCP Admission Date/Primary Care Provider: FLORA DODD Discharge Date: 03/17/17 - Discharge Diagnosis (1) Fracture of left patella Is this a current diagnosis for this admission?: Yes Summary: Patient is a 72-year-old white female approximately 4 weeks status post left knee arthroplasty with subsequent transverse left patella fracture with disruption of the extensor mechanism. Patient is admitted for elective open reduction internal fixation - Additional Information Discharge Diet: As Tolerated, Regular Discharge Activity: Activity As Tolerated, Balance Activity w/Rest, No Driving, No tub bath Home Medications: Allopurinol [Zyloprim 300 mg Tablet] 300 mg PO DAILY 03/14/17 Amitriptyline HCl [Elavil 10 mg Tablet] 10 mg PO QHS 03/14/17 Apixaban [Eliquis 5 mg Tablet] 5 mg PO DAILY 03/14/17 Diltiazem HCl [Diltiazem 24Hr ER] 180 mg PO DAILY 03/14/17 Gabapentin [Neurontin] 600 mg PO TID 03/14/17 L.acidoph,Paracasei, B.lactis [Probiotic] 1 each PO DAILY 03/14/17 Lisinopril/Hydrochlorothiazide [Zestoretic 20-25 mg Tablet] 1 each PO DAILY 05/27 Metoprolol Tartrate [Lopressor 100 mg Tablet] 100 mg PO Q12 03/14/17 Oxycodone HCl/Acetaminophen [Percocet 5-325 mg Tablet] 1 tab PO Q6HP PRN Apixaban [Eliquis 5 mg Tablet] 5 mg PO BID tablet 03/17/17 History of Present Illness Admission Date/PCP: FLORA DODD History of Present Illness: ALVARO MUJICA is a 72 year old female status post left total knee arthroplasty Hospital Course Hospital Course: Patient is admitted through the operating room where she undergoes uncomplicated left patella open reduction internal fixation. She tolerates the procedure without complication. She makes limited progress with physical therapy because of limited availability. The dressing is changed on postop day 2 and postop day 3. Wound is well approximated without erythema. Minimal serosanguineous drainage from the distal aspect of the wound. Patient is subsequent ready for discharge back to a custodial facility. Physical Exam Vital Signs: Temp Pulse Resp BP Pulse Ox 36.9 C 67 16 107/56 L 96 03/16/17 15:40 03/16/17 15:40 03/16/17 15:40 03/16/17 15:40 03/16/17 15:40 Intake & Output 03/16/17 03/17/17 03/18/17 06:59 06:59 06:59 Intake Total 255 720 Balance 255 720 General appearance: PRESENT: obese Head exam: PRESENT: normocephalic Respiratory exam: PRESENT: unlabored Cardiovascular exam: PRESENT: RRR Pulses: PRESENT: +1 pedal pulses bilateral Vascular exam: PRESENT: normal capillary refill GI/Abdominal exam: PRESENT: soft Rectal exam: PRESENT: deferred Musculoskeletal exam: PRESENT: other - Left knee immobilizer in place. Underneath this there is a honeycomb dressing with a well approximated incision without erythema. There is scant serosanguineous drainage from the distal aspect of the wound. Dressing is changed. Neurological exam: PRESENT: alert, awake, oriented to person, oriented to place , oriented to time, oriented to situation. ABSENT: motor sensory deficit Psychiatric exam: PRESENT: appropriate affect, normal mood. ABSENT: homicidal ideation, suicidal ideation Skin exam: PRESENT: dry, intact, warm. ABSENT: cyanosis, rash Results Laboratory Results: 03/15/17 04:40 03/15/17 04:40 Impressions: Chest X-Ray 03/08/17 12:36 IMPRESSION: Pulmonary emphysema. No acute abnormality. Fluoroscopy 03/14/17 00:00 IMPRESSION: IMAGE(S) OBTAINED DURING PROCEDURE. Knee X-Ray 03/14/17 00:00 IMPRESSION: IMAGE(S) OBTAINED DURING PROCEDURE. Status: Imported from PACS Transfer Plan - Disposition Transfer Plan: Patient be transferred to a custodial facility with ongoing physical therapy and custodial. Dressing can be changed by nursing on a as needed basis. Physical therapy can work and isometric strengthening quad and hamstrings as well as weightbearing as tolerated ambulation. No range of motion at this point. Follow-up will be with Dr. Quiñones and [facility] for surgery in 2 weeks for staple removal. - Time Spent with Patient Time spent with patient: Less than 30 Minutes Qualifiers PATEINT BEING DISCHARGED WITH ANY OF THE FOLLOWING DIAGNOSIS?: No VTE patient discharged on overlapping Therapy?: Yes
[2017-03-17] MEDS: LACTOBACILLUS ACIDOPHILUS 250 MG TAB PO SCH (09:21)
[2017-03-17] MEDS: METOPROLOL SUCCINATE 50 MG TAB.SR.24H PO SCH (09:21)
[2017-03-17] MEDS: LISINOPRIL 10 MG TABLET PO SCH (09:22)
[2017-03-17] MEDS: ALLOPURINOL 300 MG TABLET PO SCH (09:22)
[2017-03-17] MEDS: DILTIAZEM HCL 180 MG CAPSULE.CR PO SCH (09:22)
[2017-03-17] MEDS: HYDROCHLOROTHIAZIDE 25 MG TABLET PO SCH (09:22)
[2017-03-17] MEDS: MORPHINE SULFATE 10 MG/ML INJ IV PRN ×2 (09:27→16:35)
[2017-03-17] MEDS: APIXABAN 5 MG TABLET PO SCH (09:27)
[2017-03-17] MEDS ORDERED: MAGNESIUM CITRATE 296 ML BOTTLE PO ONE ×2 (10:30→13:30)
[2017-03-17 12:26] VITALS: BP 114/58
== END 2017-03-17 16:45 ==
LOC: OROUT 05:25 → 4N 10:13 → OROUT 03-17 16:45
PROVIDERS: ATTEND Orthopaedic Surgery
PROC: 0QSF04Z Reposition Left Patella with Internal Fixation Device, Open Approach (ICD-10-PCS; principal; 2017-03-14 07:30)
DX: S82.012A Displaced osteochondral fracture of left patella, initial encounter for closed fracture (principal); W19.XXXA Unspecified fall, initial encounter; Z96.659 Presence of unspecified artificial knee joint; I10 Essential (primary) hypertension; E78.5 Hyperlipidemia, unspecified; E11.9 Type 2 diabetes mellitus without complications; M25.562 Pain in left knee; M19.90 Unspecified osteoarthritis, unspecified site; E66.9 Obesity, unspecified; Z79.01 Long term (current) use of anticoagulants; Z79.899 Other long term (current) drug therapy; Z68.42 Body mass index [BMI] 45.0-49.9, adult; Z79.84 Long term (current) use of oral hypoglycemic drugs
CPT/HCPCS: 27524; 36415; 87070; 87205; 82962; 82947; 85025; 85610; 85730; 87075; 80048; 71020; 73560; 97530; 97110; 97163; L1830 ×2; A9270 ×27; J2250; J3490 ×5; J3010; J2270 ×4; J7120; J2704; J0690; G8978; G8979; 01392; J1170

== ENCOUNTER → 2017-07-27 | Outpatient (CLI) | payer MEDICARE, OTHER ==
[2017-07-27 10:06] LABS: ABSOLUTE BASOPHILS # (AUTO) 0.1 10^3/uL (0.0-0.2); ABSOLUTE EOSINOPHILS # (AUTO) 0.6 10^3/uL (0.0-0.6); ABSOLUTE MONOCYTES (AUTO) 0.9 10^3/uL (0.1-1.4); ABSOLUTE NEUT (AUTO) 5.9 10^3/uL (1.7-8.2); BASOPHILS % (AUTO) 0.7 % (0-2); EOSINOPHILS % (AUTO) 6.4 % (0-6); HEMATOCRIT 38.5 % (36.0-47.0); HEMOGLOBIN 12.9 g/dL (12.0-15.5); LYMPHOCYTES % (AUTO) 21.3 % (13-45); MEAN CORPUSCULAR HEMOGLOBIN 29.9 pg (27.0-33.4); MEAN CORPUSCULAR HGB CONC 33.5 g/dL (32.0-36.0); MEAN CORPUSCULAR VOLUME 89 fl (80-97); MONOCYTES % (AUTO) 9.3 % (3-13); PLATELET COUNT 290 10^3/uL (150-450); RED BLOOD COUNT 4.31 10^6/uL (3.72-5.28); RED CELL DISTRIBUTION WIDTH 14.6 % (11.5-14.0); SEGMENTED NEUTROPHILS % (AUTO) 62.3 % (42-78); TOTAL CELLS COUNTED % (AUTO) 100 %; WHITE BLOOD COUNT 9.4 10^3/uL (4.0-10.5)
[2017-07-27 10:39] LABS: ALANINE AMINOTRANSFERASE 24 U/L (9-52); ALBUMIN 4.2 g/dL (3.5-5.0); ALKALINE PHOSPHATASE 65 U/L (38-126); ANION GAP 15 (5-19); ASPARTATE AMINO TRANSFERASE 20 U/L (14-36); BILIRUBIN,DIRECT 0.3 mg/dL (0.0-0.4); BILIRUBIN,TOTAL 0.5 mg/dL (0.2-1.3); BLOOD UREA NITROGEN 17 mg/dL (7-20); CALCIUM 10.8 mg/dL (8.4-10.2); CARBON DIOXIDE 29 mmol/L (22-30); CHLORIDE 104 mmol/L (98-107); CHOLESTEROL 143.15 mg/dL (0-200); GLUCOSE 111 mg/dL (75-110); POTASSIUM 4.2 mmol/L (3.6-5.0); SODIUM 147.6 mmol/L (137-145); TOTAL PROTEIN 7.7 g/dL (6.3-8.2); TRIGLYCERIDES 157 mg/dL (<150)
[2017-07-27 10:50] LABS: DIRECT LDL 68 mg/dL (<100)
[2017-07-27 10:54] LABS: VLDL CHOLESTEROL 31.4 mg/dL (10-31)
== END ==
LOC: OD 09:10
PROVIDERS: ATTEND Family Medicine Geriatric Medicine
DX: I10 Essential (primary) hypertension (principal); I48.2 Chronic atrial fibrillation; E66.9 Obesity, unspecified; G89.4 Chronic pain syndrome; E55.9 Vitamin D deficiency, unspecified; M17.12 Unilateral primary osteoarthritis, left knee; Z79.899 Other long term (current) drug therapy
CPT/HCPCS: 36415; 80053; 80061; 82652; 84443; 85025

== ENCOUNTER → 2017-09-18 | Outpatient (CLI) | payer MEDICARE, OTHER ==
[2017-09-18 11:12] LABS: CALCIUM 9.7 mg/dL (8.4-10.2)
== END ==
LOC: OD 09:25
PROVIDERS: ATTEND Family Medicine Geriatric Medicine
DX: E87.5 Hyperkalemia (principal); R73.9 Hyperglycemia, unspecified
CPT/HCPCS: 36415; 82310; 82947; 82950; 83036; 83970

== ENCOUNTER → 2017-10-29 | Outpatient (CLI) | payer MEDICARE, OTHER ==
--- NOTE | 2017-10-30 08:35 | WOMENS IMAGING REPORT ---
EXAM DESCRIPTION: BILAT SCREENING MAMMO W/CAD COMPLETED DATE/TIME: 10/29/2017 11:13 am REASON FOR STUDY: SCREENING MAMMO Z12.31 ENCNTR SCREEN MAMMOGRAM FOR MALIGNANT NEOPLASM OF [place] COMPARISON: 2015, 2016 TECHNIQUE: Standard craniocaudal and mediolateral oblique views of each breast recorded using digita l acquisition. LIMITATIONS: None. FINDINGS: No masses, calcifications or architectural distortion. No areas of suspicion. Read with the assistance of CAD. .[facility] - R2 Cenova Version 1.3 .[facility] - R2 Cenova Version 1.3 .[facility] - R2 Cenova Version 2.4 .[facility] [place] Cenova Version 2.4 .[facility] - R2 Order Planner Version 9.2 IMPRESSION: NORMAL MAMMOGRAM. BIRADS 1. BREAST DENSITY: b. There are scattered areas of fibroglandular density. BIRAD: 1 NEGATIVE RECOMMENDATION: ROUTINE SCREENING COMMENT: The patient has been notified of the results by letter per MQSA requirements. Additional no tification policies are in place for contacting patient with suspicious or incomplete findings. Quality ID #[id number]: The [employer] recommends an annual screening mammogram for women aged 40 years or over. This facility utilizes a reminder system to ensure that all patients receive reminder letters, and/or direct phone calls for appointments. This includes reminders for routine scr eening mammograms, diagnostic mammograms, or other Breast Imaging Interventions when appropriate. Th is patient will be placed in the appropriate reminder system. The [employer] (ACR) has developed recommendations for screening MRI of the breast s in certain patient populations, to be used in conjunction with mammography. Breast MRI surveillanc e may be appropriate for women with more than 20% lifetime risk of developing breast cancer as deter mined by genetic testing, significant family history of the disease, or history of mantle radiation f or Hodgkins Disease. ACR Practice Guidelines 2008. TECHNICAL DOCUMENTATION: FINDING NUMBER: (1) ASSESSMENT: (1) JOB ID: [id number] [employer]- All Rights Reserved Reading location - IP/workstation name: [email or web address]
== END ==
LOC: WI 10:34
PROVIDERS: ATTEND Internal Medicine
DX: Z12.31 Encounter for screening mammogram for malignant neoplasm of breast (principal)
CPT/HCPCS: 77067

== ENCOUNTER → 2017-10-29 | Outpatient (CLI) | payer MEDICARE, OTHER ==
--- NOTE | 2017-10-29 09:31 | RADIOLOGY REPORT (SQ) ---
EXAM DESCRIPTION: CHEST PA/LATERAL COMPLETED DATE/TIME: 10/29/2017 9:14 am REASON FOR STUDY: CHF COMPARISON: 03/08/2017 EXAM PARAMETERS: NUMBER OF VIEWS: two views TECHNIQUE: Digital Frontal and Lateral radiographic views of the chest acquired. RADIATION DOSE: NA LIMITATIONS: none FINDINGS: LUNGS AND PLEURA: Stable mildly thick wall pneumoatocele in the right lower lung. Slight stable pleuroparenchymal changes at the right costophrenic angle. No acute pulmonary consolidation. No pneumothorax. MEDIASTINUM AND HILAR STRUCTURES: No masses or contour abnormalities. HEART AND VASCULAR STRUCTURES: Heart normal size. No evidence for failure. BONES: No acute findings. HARDWARE: None in the chest. OTHER: No other significant finding. IMPRESSION: 1 No significant interval changes since the prior examination dated 03/08/2017. Stable chronic changes in the right lower lung. No acute findings. TECHNICAL DOCUMENTATION: JOB ID: [id number] [employer]- All Rights Reserved Reading location - IP/workstation name: [email or web address]
[2017-10-29 10:27] LABS: ANION GAP 16 (5-19); BLOOD UREA NITROGEN 17 mg/dL (7-20); CALCIUM 9.8 mg/dL (8.4-10.2); CARBON DIOXIDE 25 mmol/L (22-30); CHLORIDE 103 mmol/L (98-107); CHOLESTEROL 159.85 mg/dL (0-200); GLUCOSE 105 mg/dL (75-110); POTASSIUM 4.2 mmol/L (3.6-5.0); SODIUM 144.1 mmol/L (137-145); TRIGLYCERIDES 168 mg/dL (<150)
[2017-10-29 10:38] LABS: DIRECT LDL 78 mg/dL (<100)
[2017-10-29 10:40] LABS: VLDL CHOLESTEROL 33.6 mg/dL (10-31)
== END ==
LOC: OD 08:27
PROVIDERS: ATTEND Internal Medicine
DX: I50.9 Heart failure, unspecified (principal); N19 Unspecified kidney failure; E78.5 Hyperlipidemia, unspecified
CPT/HCPCS: 36415; 71046; 80048; 80061

== ENCOUNTER → 2018-03-19 | Outpatient (CLI) | payer MEDICARE, OTHER ==
[2018-03-19 16:26] LABS: ANION GAP 10 (5-19); BLOOD UREA NITROGEN 18 mg/dL (7-20); CALCIUM 9.7 mg/dL (8.4-10.2); CARBON DIOXIDE 26 mmol/L (22-30); CHLORIDE 103 mmol/L (98-107); GLUCOSE 84 mg/dL (75-110); POTASSIUM 4.7 mmol/L (3.6-5.0); SODIUM 138.9 mmol/L (137-145)
== END ==
LOC: OD 14:49
PROVIDERS: ATTEND Family Medicine Geriatric Medicine
DX: I10 Essential (primary) hypertension (principal); Z79.899 Other long term (current) drug therapy
CPT/HCPCS: 36415; 80048

== ENCOUNTER → 2018-07-26 | Outpatient (CLI) | payer MEDICARE, OTHER ==
[2018-07-26 09:47] LABS: ABSOLUTE BASOPHILS # (AUTO) 0.1 10^3/uL (0.0-0.2); ABSOLUTE LYMPHOCYTES (AUTO) 1.8 10^3/uL (0.5-4.7); ABSOLUTE MONOCYTES (AUTO) 0.6 10^3/uL (0.1-1.4); ABSOLUTE NEUT (AUTO) 5.5 10^3/uL (1.7-8.2); EOSINOPHILS % (AUTO) 0.1 % (0-6); HEMATOCRIT 44.3 % (36.0-47.0); HEMOGLOBIN 14.8 g/dL (12.0-15.5); LYMPHOCYTES % (AUTO) 22.8 % (13-45); MEAN CORPUSCULAR HEMOGLOBIN 31.2 pg (27.0-33.4); MEAN CORPUSCULAR HGB CONC 33.3 g/dL (32.0-36.0); MEAN CORPUSCULAR VOLUME 94 fl (80-97); MONOCYTES % (AUTO) 8.1 % (3-13); PLATELET COUNT 247 10^3/uL (150-450); RED BLOOD COUNT 4.73 10^6/uL (3.72-5.28); TOTAL CELLS COUNTED % (AUTO) 100 %
[2018-07-26 09:50] LABS: ABSOLUTE BASOPHILS # (AUTO) 0.1 10^3/uL (0.0-0.2); ABSOLUTE LYMPHOCYTES (AUTO) 1.8 10^3/uL (0.5-4.7); ABSOLUTE MONOCYTES (AUTO) 0.6 10^3/uL (0.1-1.4); ABSOLUTE NEUT (AUTO) 5.5 10^3/uL (1.7-8.2); EOSINOPHILS % (AUTO) 0.1 % (0-6); HEMATOCRIT 44.3 % (36.0-47.0); HEMOGLOBIN 14.8 g/dL (12.0-15.5); LYMPHOCYTES % (AUTO) 22.8 % (13-45); MEAN CORPUSCULAR HEMOGLOBIN 31.2 pg (27.0-33.4); MEAN CORPUSCULAR HGB CONC 33.3 g/dL (32.0-36.0); MEAN CORPUSCULAR VOLUME 94 fl (80-97); MONOCYTES % (AUTO) 8.1 % (3-13); PLATELET COUNT 247 10^3/uL (150-450); RED BLOOD COUNT 4.73 10^6/uL (3.72-5.28); TOTAL CELLS COUNTED % (AUTO) 100 %
[2018-07-26 09:57] LABS: APPEARANCE,URINE CLEAR; BILIRUBIN,URINE NEGATIVE (NEGATIVE); COLOR,URINE YELLOW; GLUCOSE, URINE NEGATIVE (NEGATIVE); KETONES,URINE NEGATIVE (NEGATIVE); LEUKOCYTE ESTERASE,URINE SMALL (NEGATIVE); NITRITE,URINE NEGATIVE (NEGATIVE); PROTEIN,URINE NEGATIVE (NEGATIVE); URINE SPECIFIC GRAVITY 1.014; UROBILINOGEN,URINE NEGATIVE mg/dL (<2.0)
[2018-07-26 10:08] LABS: ALANINE AMINOTRANSFERASE 29 U/L (9-52); ALBUMIN 3.9 g/dL (3.5-5.0); ALKALINE PHOSPHATASE 68 U/L (38-126); ANION GAP 9 (5-19); ASPARTATE AMINO TRANSFERASE 19 U/L (14-36); BILIRUBIN,DIRECT 0.3 mg/dL (0.0-0.4); BILIRUBIN,TOTAL 0.6 mg/dL (0.2-1.3); BLOOD UREA NITROGEN 25 mg/dL (7-20); CALCIUM 9.8 mg/dL (8.4-10.2); CARBON DIOXIDE 28 mmol/L (22-30); CHLORIDE 104 mmol/L (98-107); GLUCOSE 102 mg/dL (75-110); POTASSIUM 4.9 mmol/L (3.6-5.0); SODIUM 141.4 mmol/L (137-145); TOTAL PROTEIN 7.4 g/dL (6.3-8.2)
[2018-07-26 10:21] LABS: ALANINE AMINOTRANSFERASE 29 U/L (9-52); ALBUMIN 3.9 g/dL (3.5-5.0); ALKALINE PHOSPHATASE 68 U/L (38-126); ANION GAP 9 (5-19); ASPARTATE AMINO TRANSFERASE 19 U/L (14-36); BILIRUBIN,DIRECT 0.3 mg/dL (0.0-0.4); BILIRUBIN,TOTAL 0.6 mg/dL (0.2-1.3); BLOOD UREA NITROGEN 25 mg/dL (7-20); CALCIUM 9.8 mg/dL (8.4-10.2); CARBON DIOXIDE 28 mmol/L (22-30); CHLORIDE 104 mmol/L (98-107); GLUCOSE 102 mg/dL (75-110); POTASSIUM 4.9 mmol/L (3.6-5.0); SODIUM 141.4 mmol/L (137-145); TOTAL PROTEIN 7.4 g/dL (6.3-8.2)
[2018-07-27 10:37] LABS: CREATININE URINE 96.8 mg/dL (Not Estab.); MICROALBUMIN URINE 7.3 ug/mL (Not Estab.)
== END ==
LOC: OD 08:50
PROVIDERS: ATTEND Family Medicine Geriatric Medicine
DX: E11.22 Type 2 diabetes mellitus with diabetic chronic kidney disease (principal); I12.9 Hypertensive chronic kidney disease with stage 1 through stage 4 chronic kidney disease, or unspecified chronic kidney disease; N18.3 Chronic kidney disease, stage 3 (moderate); E11.40 Type 2 diabetes mellitus with diabetic neuropathy, unspecified; E55.9 Vitamin D deficiency, unspecified; Z79.899 Other long term (current) drug therapy
CPT/HCPCS: 36415; 80053; 81001; 82043; 82306; 82570; 83970; 84100; 85025

== ENCOUNTER → 2018-10-24 | Outpatient (CLI) | payer MEDICARE, OTHER ==
--- NOTE | 2018-10-25 08:14 | XCELERA REPORT ---
[address] [address] Transthoracic Echocardiogram Report Name: ALVARO MUJICA Age: 73 yrs Gender: Female : 1945 Patient Status: Outpatient Patient Location: RAD Study Date: 10/24/2018 02:53 PM Height: 67 in Weight: 315 lb BSA: 2.5 m2 Procedure: A complete two-dimensional transthoracic echocardiogram was performed (2D, M-mode, spectral and color flow Doppler). The study was technically difficult with many images being suboptimal in quality. Reason For Study: A FIB Ordering Physician: SONDRA PERDOMO Performed By: Corrina Perdue Interpretation Summary The left ventricular ejection fraction is normal. There is mild concentric left ventricular hypertrophy. Doppler measurements suggest pseudonormalized left ventricular relaxation, which is associated with grade II/IV or mild to moderate diastolic dysfunction The right ventricular systolic function is normal. The left atrium is mildly dilated. There is a trace amount of mitral regurgitation There is no mitral valve stenosis. There is no aortic valve stenosis No aortic regurgitation is present. There is a mild amount of tricuspid regurgitation Right ventricular systolic pressure is estimated to be elevated at 30-40mmHg. There is mild pulmonary hypertension by echo There is no pericardial effusion. MMode/2D Measurements & Calculations RVDd: 3.2 cm LVIDd: 5.6 cm FS: 38.0 % Ao root diam: 2.8 cm IVSd: 1.1 cm LVIDs: 3.4 cm EDV(Teich): 151.1 ml Ao root area: 6.2 cm2 LVPWd: 0.91 cm ESV(Teich): 49.1 ml EF(Teich): 67.5 % Doppler Measurements & Calculations MV E max dorothy: MV dec slope: Ao V2 max: LV V1 max P.0 cm/sec 351.8 cm/sec2 144.7 cm/sec 3.6 mmHg MV A max dorothy: MV dec time: 0.24 secAo max PG: LV V1 max: 89.0 cm/sec 8.4 mmHg 94.4 cm/sec MV E/A: 0.97 PA V2 max: TR max dorothy: 85.5 cm/sec 290.2 cm/sec PA max P.9 mmHg TR max P.7 mmHg Left Ventricle The left ventricle is grossly normal size. There is mild concentric left ventricular hypertrophy. The left ventricular ejection fraction is normal. Doppler measurements suggest pseudonormalized left ventricular relaxation, which is associated with grade II/IV or mild to moderate diastolic dysfunction. Wall motion cannot be accurately commented on, but no definite regional wall motion abnormalities noted. Right Ventricle The right ventricle is grossly normal size. There is normal right ventricular wall thickness. The right ventricular systolic function is normal. Atria The right atrium is normal in size. The left atrium is mildly dilated. Interarterial septum not well visualized and not well dopplered. Cannot comment on ASD/PFO presence. Mitral Valve The mitral valve leaflets are sclerotic, but show no functional abnormalities. There is no mitral valve stenosis. There is a trace amount of mitral regurgitation. Aortic Valve The aortic valve is not well visualized secondary to technical limitations. There is no aortic valve stenosis. No aortic regurgitation is present. Tricuspid Valve The tricuspid valve is not well visualized, but is grossly normal. There is no tricuspid stenosis. There is a mild amount of tricuspid regurgitation. There is mild pulmonary hypertension by echo. Right ventricular systolic pressure is estimated to be elevated at 30-40mmHg. Pulmonic Valve The pulmonic valve is not well visualized. Great Vessels The aortic root is not well visualized but is probably normal size. The inferior vena cava appeared normal and decreased > 50% with respiration (RAP 5-10 mmHg). Effusions There is no pericardial effusion. : SONDRA PERDOMO > Marylu Herron
== END ==
LOC: RAD 14:46
PROVIDERS: ATTEND Internal Medicine
DX: I51.7 Cardiomegaly (principal); I48.91 Unspecified atrial fibrillation
CPT/HCPCS: 93306

== ENCOUNTER → 2018-10-28 | Outpatient (CLI) | payer MEDICARE, OTHER ==
--- NOTE | 2018-10-28 10:48 | WOMENS IMAGING REPORT ---
EXAM DESCRIPTION: BILAT SCREENING MAMMO W/CAD COMPLETED DATE/TIME: 10/28/2018 9:27 am REASON FOR STUDY: Z12.31 ENCOUNTER FOR SCREENING MAMMOGRAM FOR MALIGNANT NEOPLASM OF BREAST Z12.31 ENCNTR SCREEN MAMMOGRAM FOR MALIGNANT NEOPLASM OF [place] COMPARISON: [id number] EXAM PARAMETERS: Standard craniocaudal and mediolateral oblique views of each breast recorded using digital acquisition. Read with the assistance of CAD. .[facility] - Draft Asset Protection Lead Version 9.2 LIMITATIONS: None. FINDINGS: No suspicious masses, suspicious calcifications or architectural distortion. No areas of c oncern. IMPRESSION: Negative MAMMOGRAM. BIRADS 1 BREAST DENSITY: b. There are scattered areas of fibroglandular density. BIRAD: ASSESSMENT: 1 NEGATIVE RECOMMENDATION: ROUTINE SCREENING COMMENT: The patient has been notified of the results by letter per MQSA requirements. Additional no tification policies are in place for contacting patient with suspicious or incomplete findings. Quality ID #225: The [employer] recommends an annual screening mammogram for women aged 40 years or over. This facility utilizes a reminder system to ensure that all patients receive reminder letters, and/or direct phone calls for appointments. This includes reminders for routine scr eening mammograms, diagnostic mammograms, or other Breast Imaging Interventions when appropriate. Th is patient will be placed in the appropriate reminder system. TECHNICAL DOCUMENTATION: FINDING NUMBER: (1) ASSESSMENT: (1) JOB ID: [id number] [employer]- All Rights Reserved Reading location - IP/workstation name: [email or web address]
== END ==
LOC: WI 08:31
PROVIDERS: ATTEND Family Medicine Geriatric Medicine
DX: Z12.31 Encounter for screening mammogram for malignant neoplasm of breast (principal)
CPT/HCPCS: 77067

== ENCOUNTER → 2019-01-22 | Outpatient (CLI) | payer MEDICARE, OTHER ==
[2019-01-22 10:39] LABS: ANION GAP 10 (5-19); BLOOD UREA NITROGEN 19 mg/dL (7-20); CALCIUM 9.7 mg/dL (8.4-10.2); CARBON DIOXIDE 30 mmol/L (22-30); CHLORIDE 100 mmol/L (98-107); GLUCOSE 100 mg/dL (75-110); POTASSIUM 4.2 mmol/L (3.6-5.0)
== END ==
LOC: OD 09:48
PROVIDERS: ATTEND Internal Medicine Nephrology
DX: I12.9 Hypertensive chronic kidney disease with stage 1 through stage 4 chronic kidney disease, or unspecified chronic kidney disease (principal); N18.3 Chronic kidney disease, stage 3 (moderate); E05.90 Thyrotoxicosis, unspecified without thyrotoxic crisis or storm; E66.9 Obesity, unspecified
CPT/HCPCS: 36415; 80048; 83970

== ENCOUNTER → 2019-03-20 | Outpatient (CLI) | payer MEDICARE, OTHER ==
[2019-03-20 14:03] LABS: ABSOLUTE BASOPHILS # (AUTO) 0.1 10^3/uL (0.0-0.2); ABSOLUTE LYMPHOCYTES (AUTO) 1.6 10^3/uL (0.5-4.7); ABSOLUTE MONOCYTES (AUTO) 0.7 10^3/uL (0.1-1.4); HEMATOCRIT 39.1 % (36.0-47.0); HEMOGLOBIN 13.5 g/dL (12.0-15.5); LYMPHOCYTES % (AUTO) 21.8 % (13-45); MEAN CORPUSCULAR HEMOGLOBIN 32.3 pg (27.0-33.4); MEAN CORPUSCULAR HGB CONC 34.4 g/dL (32.0-36.0); MEAN CORPUSCULAR VOLUME 94 fl (80-97); MONOCYTES % (AUTO) 9.9 % (3-13); PLATELET COUNT 239 10^3/uL (150-450); RED BLOOD COUNT 4.17 10^6/uL (3.72-5.28); RED CELL DISTRIBUTION WIDTH 14.9 % (11.5-14.0); SEGMENTED NEUTROPHILS % (AUTO) 67.3 % (42-78); TOTAL CELLS COUNTED % (AUTO) 100 %; WHITE BLOOD COUNT 7.4 10^3/uL (4.0-10.5)
[2019-03-20 14:34] LABS: ALBUMIN 4.1 g/dL (3.5-5.0); ALKALINE PHOSPHATASE 56 U/L (38-126); ANION GAP 13 (5-19); ASPARTATE AMINO TRANSFERASE 29 U/L (14-36); BILIRUBIN,DIRECT 0.3 mg/dL (0.0-0.4); BILIRUBIN,TOTAL 0.7 mg/dL (0.2-1.3); BLOOD UREA NITROGEN 14 mg/dL (7-20); CALCIUM 9.7 mg/dL (8.4-10.2); CARBON DIOXIDE 28 mmol/L (22-30); CHLORIDE 101 mmol/L (98-107); GLUCOSE 110 mg/dL (75-110); POTASSIUM 4.6 mmol/L (3.6-5.0); TOTAL PROTEIN 7.9 g/dL (6.3-8.2)
== END ==
LOC: OD 12:55
PROVIDERS: ATTEND Family Medicine Geriatric Medicine
DX: I10 Essential (primary) hypertension (principal); G89.4 Chronic pain syndrome; Z79.899 Other long term (current) drug therapy
CPT/HCPCS: 36415; 80053; 85025

== ENCOUNTER → 2019-10-28 | Outpatient (CLI) | payer MEDICARE, OTHER ==
[2019-10-28 13:43] LABS: ABSOLUTE BASOPHILS # (AUTO) 0.1 10^3/uL (0.0-0.2); ABSOLUTE LYMPHOCYTES (AUTO) 1.9 10^3/uL (0.5-4.7); ABSOLUTE MONOCYTES (AUTO) 0.7 10^3/uL (0.1-1.4); ABSOLUTE NEUT (AUTO) 3.8 10^3/uL (1.7-8.2); BASOPHILS % (AUTO) 0.9 % (0-2); EOSINOPHILS % (AUTO) 0.1 % (0-6); HEMATOCRIT 41.1 % (36.0-47.0); HEMOGLOBIN 14.2 g/dL (12.0-15.5); LYMPHOCYTES % (AUTO) 29.1 % (13-45); MEAN CORPUSCULAR HEMOGLOBIN 32.8 pg (27.0-33.4); MEAN CORPUSCULAR HGB CONC 34.4 g/dL (32.0-36.0); MEAN CORPUSCULAR VOLUME 95 fl (80-97); MONOCYTES % (AUTO) 10.6 % (3-13); PLATELET COUNT 227 10^3/uL (150-450); RED BLOOD COUNT 4.32 10^6/uL (3.72-5.28); SEGMENTED NEUTROPHILS % (AUTO) 59.3 % (42-78); TOTAL CELLS COUNTED % (AUTO) 100 %; WHITE BLOOD COUNT 6.5 10^3/uL (4.0-10.5)
[2019-10-28 14:13] LABS: ALBUMIN 4.2 g/dL (3.5-5.0); ALKALINE PHOSPHATASE 64 U/L (38-126); ANION GAP 13 (5-19); ASPARTATE AMINO TRANSFERASE 34 U/L (14-36); BILIRUBIN,TOTAL 0.8 mg/dL (0.2-1.3); BLOOD UREA NITROGEN 17 mg/dL (7-20); CALCIUM 9.9 mg/dL (8.4-10.2); CARBON DIOXIDE 27 mmol/L (22-30); CHLORIDE 100 mmol/L (98-107); GLUCOSE 115 mg/dL (75-110); POTASSIUM 4.2 mmol/L (3.6-5.0); TOTAL PROTEIN 8.5 g/dL (6.3-8.2)
== END ==
LOC: OD 11:47
PROVIDERS: ATTEND Family Medicine Geriatric Medicine
DX: I48.91 Unspecified atrial fibrillation (principal); I10 Essential (primary) hypertension; Z79.899 Other long term (current) drug therapy
CPT/HCPCS: 36415; 80053; 85025

== ENCOUNTER → 2019-10-31 | Outpatient (CLI) | payer MEDICARE, OTHER | LOC: OD 11:25 | PROVIDERS: ATTEND Family Medicine Geriatric Medicine | DX: R73.9 Hyperglycemia, unspecified (principal) | CPT/HCPCS: 36415; 83036 ==

== ENCOUNTER → 2020-03-26 | Outpatient (CLI) | payer MEDICARE, OTHER ==
[2020-03-26 13:44] LABS: ABSOLUTE BASOPHILS # (AUTO) 0.1 10^3/uL (0.0-0.2); ABSOLUTE LYMPHOCYTES (AUTO) 1.8 10^3/uL (0.5-4.7); ABSOLUTE MONOCYTES (AUTO) 0.7 10^3/uL (0.1-1.4); ABSOLUTE NEUT (AUTO) 5.4 10^3/uL (1.7-8.2); HEMATOCRIT 39.6 % (36.0-47.0); HEMOGLOBIN 13.7 g/dL (12.0-15.5); LYMPHOCYTES % (AUTO) 22.1 % (13-45); MEAN CORPUSCULAR HEMOGLOBIN 31.4 pg (27.0-33.4); MEAN CORPUSCULAR HGB CONC 34.5 g/dL (32.0-36.0); MEAN CORPUSCULAR VOLUME 91 fl (80-97); MONOCYTES % (AUTO) 8.5 % (3-13); PLATELET COUNT 232 10^3/uL (150-450); RED BLOOD COUNT 4.36 10^6/uL (3.72-5.28); RED CELL DISTRIBUTION WIDTH 13.9 % (11.5-14.0); SEGMENTED NEUTROPHILS % (AUTO) 68.4 % (42-78); TOTAL CELLS COUNTED % (AUTO) 100 %
[2020-03-26 13:55] LABS: ANION GAP 11 (5-19); BLOOD UREA NITROGEN 19 mg/dL (7-20); CALCIUM 10.1 mg/dL (8.4-10.2); CARBON DIOXIDE 29 mmol/L (22-30); CHLORIDE 99 mmol/L (98-107); GLUCOSE 113 mg/dL (75-110); POTASSIUM 4.4 mmol/L (3.6-5.0)
== END ==
LOC: OD 12:06
PROVIDERS: ATTEND Family Medicine Geriatric Medicine
DX: I10 Essential (primary) hypertension (principal); I48.91 Unspecified atrial fibrillation; Z79.899 Other long term (current) drug therapy
CPT/HCPCS: 36415; 80048; 85025

== ENCOUNTER → 2020-04-07 | Outpatient (CLI) | payer MEDICARE, OTHER ==
--- NOTE | 2020-04-07 14:15 | RADIOLOGY REPORT (SQ) ---
EXAM DESCRIPTION: CERV SP 4 OR 5 VIEWS IMAGES COMPLETED DATE/TIME: 04/07/2020 12:44 pm REASON FOR STUDY: (M25.532)PAIN IN LEFT WRIST(M54.12)RADICULOPATHY, CERVICAL REGION M25.532 PAIN IN LEFT WRIST M54.12 RADICULOPATHY, CERVICAL REGION COMPARISON: None. NUMBER OF VIEWS: Five views. TECHNIQUE: AP, lateral, obliques and odontoid radiographic images acquired of the cervical spine. LIMITATIONS: None. FINDINGS: MINERALIZATION: Normal. ALIGNMENT: Anatomic. VERTEBRAE: Vertebral bodies of normal height. DISCS: Disc narrowing from C5-C7 with marginal osteophytes. FORAMINA: Mild foraminal narrowing at C5-6 secondary to the presence of uncovertebral osteophytes. LATERAL AND POSTERIOR ELEMENTS: Hypertrophic facet changes, left more than right. HARDWARE: None in the spine. SOFT TISSUES: No masses or calcifications. Lung apices clear. OTHER: No other significant finding. IMPRESSION: Degenerative disc disease, spondylosis, and facet arthropathy. TECHNICAL DOCUMENTATION: JOB ID: [id number] 2010 [employer]- All Rights Reserved Reading location - IP/workstation name: [email or web address]
--- NOTE | 2020-04-07 14:16 | RADIOLOGY REPORT (SQ) ---
EXAM DESCRIPTION: WRIST LEFT 3 VIEWS IMAGES COMPLETED DATE/TIME: 04/07/2020 12:44 pm REASON FOR STUDY: (M25.532)PAIN IN LEFT WRIST M25.532 PAIN IN LEFT WRIST M54.12 RADICULOPATHY, CER VICAL REGION COMPARISON: None. NUMBER OF VIEWS: Three views. TECHNIQUE: AP, lateral, and oblique radiographic images acquired of the left wrist. LIMITATIONS: None. FINDINGS: MINERALIZATION: Normal. BONES: No acute fracture or dislocation. Degenerative joint changes are present in the 1st carpometa carpal joint. SOFT TISSUES: No soft tissue swelling. No foreign body. OTHER: No other significant finding. IMPRESSION: Degenerative joint disease in the 1st carpometacarpal joint. TECHNICAL DOCUMENTATION: JOB ID: [id number] [email or web address]- All Rights Reserved Reading location - IP/workstation name: [email or web address]
== END ==
LOC: RAD 11:57
PROVIDERS: ATTEND Family Medicine Geriatric Medicine
DX: M19.032 Primary osteoarthritis, left wrist (principal); M25.532 Pain in left wrist; M54.12 Radiculopathy, cervical region; M50.323 Other cervical disc degeneration at C6-C7 level
CPT/HCPCS: 72050